=== PATIENT | male | born 1945 | race Caucasian/White ===

== ENCOUNTER 2017-12-04 12:07 | Inpatient (IN) ==
[2017-12-04 13:21] LABS: Bilirubin,Urine Negative (Negative); Blood,Urine Negative (Negative); Clarity,Urine Clear (Clear); Color,Urine Yellow (Yellow); Glucose,Urine (UA) Normal (Normal); Ketones,Urine Negative (Negative); Leukocyte Esterase,Urine Negative (Negative); Nitrite,Urine Negative (Negative); Protein,Urine 30 mg/dL (Neg-Trace); Specific Gravity,Urine 1.026 (1.010-1.025); Urobilinogen,Urine Normal (Normal)
[2017-12-04 13:24] LABS: Bacteria,Urine None Seen per hpf (None-Few); Hyaline Casts,Urine None Seen per lpf (None-Few); Squamous Epithelial Cell,Urine Many per lpf (None-Few); WBC,Urine 0-3 per hpf (0-3)
--- NOTE | 2017-12-04 13:25 | Emergency Department Note ---
Disposition Clinical Impression: Weakness, Hypoxia, Shortness of breath Disposition: Admitted As Inpatient Condition: Good Time of Disposition: 15:14 General Adult HPI - General Chief complaint: ED Weakness Stated complaint: Weakness,body aches Time Seen by Provider: 12/04/17 12:14 Source: patient Limitations: no limitations Nursing Notes Reviewed: Yes Vital Signs Reviewed: Yes - History of Present Illness HPI Narrative: 2 day history of not feeling well. Woke up yesterday and was " dizzy and wobbly." States that it resolved in the middle of the day but returned last night in the middle of the night, but " not as bad." It got better but this morning it was present again. Denies a history of stroke. Is not a smoker but does have COPD. He stopped smoking in 1997. Does not use oxygen at home. Denies CP, N/V/D. patient was conversationally dyspneic on initial presentation. He was placed on 2 L of oxygen and given a breathing treatment. His lung sounds were clear after this. Pt reports a funny feeling in his head, and SOB. Denies any fevers. Pain Scale: 0 - Related Data Home Medications Medication Instructions Recorded Confirmed Aspirin [Lo-Dose Aspirin EC] 81 mg PO DAILY 10/02/17 10/02/17 Atorvastatin [Lipitor] 20 mg PO HS 10/02/17 10/02/17 Carvedilol 12.5 mg PO BID 10/02/17 10/02/17 Furosemide [Lasix] 40 mg PO DAILY 10/02/17 10/02/17 SitaGLIPtin [Januvia] 100 mg PO DAILY 10/02/17 10/02/17 Spironolactone [Aldactone] 12.5 mg PO DAILY 10/02/17 10/02/17 amLODIPine [Norvasc] 5 mg PO DAILY 10/02/17 10/02/17 glipiZIDE [Glipizide] 10 mg PO BID 10/02/17 10/02/17 Allergies Allergy/AdvReac Type Severity Reaction Status Date / Time No Known Allergies Allergy Unverified 10/02/17 07:22 All systems ED: reviewed and negative except as stated. Review of Systems: As Per HPI Constitutional: Denies: fever, chills ENT ED: Denies: congestion Cardiovascular: Denies: chest pain, palpitations, syncope Respiratory: Reports: dyspnea (Over the past several months.). Denies: cough Gastrointestinal: Denies: abdominal pain, nausea, vomiting, diarrhea Genitourinary: Denies: urgency, dysuria, frequency, hematuria Musculoskeletal: Denies: back pain, neck pain Integumentary: Denies: rash, abrasion Neurological: Reports: abnormal gait (Patient states that he is very wobbly.), other (Funny feeling in his head.). Denies: headache, numbness, paresthesias Past Medical History - Past Medical History Attestation: Yes The following information was validated with the patient. Source: patient Medical history: Reports: CHF, COPD Surgical history: Reports: cholecystectomy, coronary bypass (CABG) Psychiatric history: Reports: no psych history - Social History Smoking Status: Former smoker Smokeless Tobacco Status: No Alcohol use: Reports: none Drug use: Reports: none Physical Exam - General Limitations: no limitations General appearance: alert, in no apparent distress - Head Head exam: atraumatic, normocephalic, normal inspection - Eye Eye exam: Present: normal appearance, PERRL, EOMI. Absent: scleral icterus - ENT ENT exam: normal exam, normal oropharynx, mucous membranes moist - Neck Neck exam: Present: normal inspection, full ROM, trachea midline - Chest Chest inspection: Present: normal inspection, symmetric chest wall rise - Respiratory Respiratory exam: Present: normal lung sounds bilaterally. Absent: respiratory distress, accessory muscle use - Cardiovascular Cardiovascular exam: Present: regular rate, normal rhythm, normal heart sounds - Abdominal Exam Abdominal exam: Present: soft, Non-Tender. Absent: tenderness, distention, guarding, rebound, rigidity, organomegaly - Extremities Exam Extremities exam: Present: normal inspection, full ROM, normal capillary refill , other (Good motor, strong strength and sensation to all 4 extremities. No deficits.). Absent: tenderness, pedal edema, calf tenderness - Back Exam Back exam: Present: normal inspection, full ROM. Absent: tenderness - Neurological Exam Neurological exam: Present: alert, oriented X3, CN II-XII intact, other (Pt has good heel to chin bilaterally). Absent: normal gait (Pt too weka to ambulate.) , motor sensory deficit ( E playing) - Psychiatric Psychiatric exam: Present: normal affect, normal mood - Skin Skin exam: Present: warm (When the plane he tolerated), dry, intact, normal color Course Course Narrative: Patient did have a heart catheterization on 726. Showed severe three-vessel disease. Nothing was stented at that time. He did see Dr. Tafoya. He did have echocardiogram around the same time that showed some wall motion abnormalities. Patient responded well to DuoNeb and Solu-Medrol. Does have signs of COPD on his chest x-ray. Does not appear to be fluid overloaded. He is unable to walk while here in the emergency department. He states he is too wobbly to wean. However while in bed he has an NIH of 0. He has full movement against gravity of all 4 extremities. Mentating appropriately. However in the past 2 days as wobbly feeling keeps resolving is concerning to me for possible TIA versus stroke. Patient does complain of shortness of breath. He states this is been chronic for several months however. He denies any chest pain. Denies any recent injuries. States that he is generally very coordinated and frequently walks around and does a lot of activity. CT negative. Chest Xray concerning for COPD. We will admit Pt to the hospital for further neurologic evaluation and COPD. Vital Signs Temperature 97.6 F 12/04/17 12:10 Pulse Rate 41 12/04/17 12:10 Respiratory Rate 18 12/04/17 12:10 Blood Pressure 189/64 12/04/17 12:10 O2 Sat by Pulse Oximetry 99 12/04/17 12:10 Temperature 97.5 F L 12/04/17 15:50 Pulse Rate 75 12/04/17 15:50 Respiratory Rate 15 12/04/17 15:50 Blood Pressure 178/79 12/04/17 15:50 O2 Sat by Pulse Oximetry 96 12/04/17 15:50 Oxygen Delivery Oxygen Delivery Room Air Medical Decision Making - Medical Records Medical records reviewed: Yes I reviewed the patient's medical records. - Lab Data Lab results reviewed: Yes I reviewed the patient's lab results. Result diagrams: 12/04/17 12:53 12/04/17 12:53 Lab Results 12/04/17 12/04/17 12/04/17 Range/Units 12:53 12:53 12:53 WBC 9.2 (4.3-11.1) K/mcL RBC 5.36 (4.19-5.50) M/mcL Hgb 16.4 (12.9-16.9) g/dL Hct 47.1 (37.5-50.1) % MCV 87.9 (83.0-100.0) fL MCH 30.6 (28.0-33.3) pg MCHC 34.8 (31.6-35.5) g/dL RDW 13.2 (11.5-14.5) % Plt Count 192 (140-400) K/mcL MPV 10.9 (9.4-12.4) fL Immature Gran % 0.4 (0-4) % Seg Neutrophils % 66.0 % Lymphocytes % 19.9 % Monocytes % 8.6 % Eosinophils % 4.4 % Basophils % 0.7 % Neutrophils # 6.1 (1.6-8.9) K/mcL Lymphocytes # 1.8 (0.6-4.6) K/mcL Monocytes # 0.8 (0.0-1.3) K/mcL Eosinophils # 0.4 (0.0-0.6) K/mcL Basophils # 0.1 (0.0-0.2) K/mcL PT (9.4-12.1) Seconds INR APTT (26.0-36.0) Seconds Sodium 135 L (136-145) mEq/L Potassium 4.4 (3.5-5.1) mEq/L Chloride 102 (98-107) mEq/L Carbon Dioxide 24 (23-29) mEq/L BUN 16 (8-23) mg/dL Creatinine 1.17 (0.70-1.30) mg/dL Est GFR ( Amer) > 60 (> 60) Est GFR (Non-Af Amer) > 60 (> 60) BUN/Creatinine Ratio 14 (6-26) Glucose 247 H (70-105) mg/dL Calculated Osmolality 289 (280-300) Lactic Acid 0.9 (0.5-2.2) mmol/L Calcium 9.4 (8.6-10.3) mg/dL Magnesium 2.1 (1.6-2.6) mg/dL Total Bilirubin 1.0 (0.3-1.0) mg/dL AST 17 (13-39) Units/L ALT 14 (7-52) Units/L Alkaline Phosphatase 76 (34-104) Units/L Troponin I 0.03 (< 0.04) ng/mL B-Natriuretic Peptide (Less than 100) pg/mL Serum Total Protein 6.6 (6.4-8.9) g/dL Albumin 4.5 (3.5-5.7) g/dL Globulin 2.1 L (2.4-3.5) g/dL Albumin/Globulin Ratio 2.1 (1.1-2.2) TSH 3.467 (0.340-5.600) mcIU/mL Ur Specimen Adequacy Urine Color (Yellow) Urine Clarity (Clear) Urine pH (5.0-8.0) pH Units Ur Specific Bryan (1.010-1.025) Urine Protein (Neg-Trace) mg/dL Urine Glucose (UA) (Normal) mg/dL Urine Ketones (Negative) mg/dL Urine Blood (Negative) Urine Nitrite (Negative) Urine Bilirubin (Negative) Urine Urobilinogen (Normal) mg/dL Ur Leukocyte Esterase (Negative) Urine Microscopic RBC (0-3) per hpf Urine Microscopic WBC (0-3) per hpf Ur Squamous Epith Cells (None-Few) per lpf Urine Bacteria (None-Few) per hpf Hyaline Casts (None-Few) per lpf Ur Culture Indicated? (NO) Lyme Total Antibody (Negative) 12/04/17 12/04/17 12/04/17 Range/Units 12:53 12:53 12:53 WBC (4.3-11.1) K/mcL RBC (4.19-5.50) M/mcL Hgb (12.9-16.9) g/dL Hct (37.5-50.1) % MCV (83.0-100.0) fL MCH (28.0-33.3) pg MCHC (31.6-35.5) g/dL RDW (11.5-14.5) % Plt Count (140-400) K/mcL MPV (9.4-12.4) fL Immature Gran % (0-4) % Seg Neutrophils % % Lymphocytes % % Monocytes % % Eosinophils % % Basophils % % Neutrophils # (1.6-8.9) K/mcL Lymphocytes # (0.6-4.6) K/mcL Monocytes # (0.0-1.3) K/mcL Eosinophils # (0.0-0.6) K/mcL Basophils # (0.0-0.2) K/mcL PT 11.5 (9.4-12.1) Seconds INR 1.0 APTT 36.3 H (26.0-36.0) Seconds Sodium (136-145) mEq/L Potassium (3.5-5.1) mEq/L Chloride (98-107) mEq/L Carbon Dioxide (23-29) mEq/L BUN (8-23) mg/dL Creatinine (0.70-1.30) mg/dL Est GFR ( Amer) (> 60) Est GFR (Non-Af Amer) (> 60) BUN/Creatinine Ratio (6-26) Glucose (70-105) mg/dL Calculated Osmolality (280-300) Lactic Acid (0.5-2.2) mmol/L Calcium (8.6-10.3) mg/dL Magnesium (1.6-2.6) mg/dL Total Bilirubin (0.3-1.0) mg/dL AST (13-39) Units/L ALT (7-52) Units/L Alkaline Phosphatase (34-104) Units/L Troponin I (< 0.04) ng/mL B-Natriuretic Peptide 103 H (Less than 100) pg/mL Serum Total Protein (6.4-8.9) g/dL Albumin (3.5-5.7) g/dL Globulin (2.4-3.5) g/dL Albumin/Globulin Ratio (1.1-2.2) TSH (0.340-5.600) mcIU/mL Ur Specimen Adequacy Urine Color (Yellow) Urine Clarity (Clear) Urine pH (5.0-8.0) pH Units Ur Specific Bryan (1.010-1.025) Urine Protein (Neg-Trace) mg/dL Urine Glucose (UA) (Normal) mg/dL Urine Ketones (Negative) mg/dL Urine Blood (Negative) Urine Nitrite (Negative) Urine Bilirubin (Negative) Urine Urobilinogen (Normal) mg/dL Ur Leukocyte Esterase (Negative) Urine Microscopic RBC (0-3) per hpf Urine Microscopic WBC (0-3) per hpf Ur Squamous Epith Cells (None-Few) per lpf Urine Bacteria (None-Few) per hpf Hyaline Casts (None-Few) per lpf Ur Culture Indicated? (NO) Lyme Total Antibody Negative (Negative) 09/27/18 Range/Units 12:55 WBC (4.3-11.1) K/mcL RBC (4.19-5.50) M/mcL Hgb (12.9-16.9) g/dL Hct (37.5-50.1) % MCV (83.0-100.0) fL MCH (28.0-33.3) pg MCHC (31.6-35.5) g/dL RDW (11.5-14.5) % Plt Count (140-400) K/mcL MPV (9.4-12.4) fL Immature Gran % (0-4) % Seg Neutrophils % % Lymphocytes % % Monocytes % % Eosinophils % % Basophils % % Neutrophils # (1.6-8.9) K/mcL Lymphocytes # (0.6-4.6) K/mcL Monocytes # (0.0-1.3) K/mcL Eosinophils # (0.0-0.6) K/mcL Basophils # (0.0-0.2) K/mcL PT (9.4-12.1) Seconds INR APTT (26.0-36.0) Seconds Sodium (136-145) mEq/L Potassium (3.5-5.1) mEq/L Chloride (98-107) mEq/L Carbon Dioxide (23-29) mEq/L BUN (8-23) mg/dL Creatinine (0.70-1.30) mg/dL Est GFR ( Amer) (> 60) Est GFR (Non-Af Amer) (> 60) BUN/Creatinine Ratio (6-26) Glucose (70-105) mg/dL Calculated Osmolality (280-300) Lactic Acid (0.5-2.2) mmol/L Calcium (8.6-10.3) mg/dL Magnesium (1.6-2.6) mg/dL Total Bilirubin (0.3-1.0) mg/dL AST (13-39) Units/L ALT (7-52) Units/L Alkaline Phosphatase (34-104) Units/L Troponin I (< 0.04) ng/mL B-Natriuretic Peptide (Less than 100) pg/mL Serum Total Protein (6.4-8.9) g/dL Albumin (3.5-5.7) g/dL Globulin (2.4-3.5) g/dL Albumin/Globulin Ratio (1.1-2.2) TSH (0.340-5.600) mcIU/mL Ur Specimen Adequacy See below A Urine Color Yellow (Yellow) Urine Clarity Clear (Clear) Urine pH 5.0 (5.0-8.0) pH Units Ur Specific Bryan 1.026 H (1.010-1.025) Urine Protein 30 H (Neg-Trace) mg/dL Urine Glucose (UA) Normal (Normal) mg/dL Urine Ketones Negative (Negative) mg/dL Urine Blood Negative (Negative) Urine Nitrite Negative (Negative) Urine Bilirubin Negative (Negative) Urine Urobilinogen Normal (Normal) mg/dL Ur Leukocyte Esterase Negative (Negative) Urine Microscopic RBC 5-15 H (0-3) per hpf Urine Microscopic WBC 0-3 (0-3) per hpf Ur Squamous Epith Cells Many H (None-Few) per lpf Urine Bacteria None Seen (None-Few) per hpf Hyaline Casts None Seen (None-Few) per lpf Ur Culture Indicated? NO (NO) Lyme Total Antibody (Negative) - Radiology Data Radiology results reviewed: Yes I reviewed the patient's radiology results. Chest X-Ray 12/04/17 12:34 IMPRESSION: Atherosclerotic calcifications in the aorta, with postsurgical changes seen related to prior CABG. No acute cardiopulmonary process is identified. Mildly prominent interstitial change felt related to underlying COPD. D/ / Fredi Bose MD / Fredi Bose MD Interpreting Provider: Fredi Bose MD Head CT 12/04/17 12:35 IMPRESSION: 1. No acute intracranial abnormality. 2. Chronic small vessel ischemic disease. D/ / Chi Cheng MD / Chi Cheng MD Interpreting Provider: Chi Cheng MD - EKG Data EKG #1 EKG attestation: Yes I reviewed and interpreted this EKG. EKG results narrative: Patient bigeminy at this time. No signs of acute ischemia. Does have an underlying sinus rhythm. Attestation Statement - Attestation Attestation: I, Jeremiah Carter DO, examined this patient [id number] and my medical decision-making was reviewed with Dr. Morena Traylor, Resident Physician. I agree with the documented findings, disposition and treatment plan as described except to the extent set forth below. Please see my progress notes for details. NIH Stroke Scale - Level of Consciousness LOC: Alert - LOC Questions LOC Questions: Answers both correctly - LOC Commands LOC Commands: Performs both correctly - Best Gaze Best Gaze: Normal - Visual Visual: No visual loss - Facial Palsy Facial Palsy: Normal - Motor Arms Motor Arm-Left: No drift for 10 seconds Motor Arm-Right: No drift for 10 seconds - Motor Legs Motor Leg-Left: No drift for 5 seconds Motor Leg-Right: No drift for 5 seconds - Limb Ataxia Limb Ataxia: Normal, No Ataxia - Sensory Sensory: Normal - Best Language Best Language: No aphasia - Dysarthria Dysarthria: Normal - Extinction and Inattention Extinction and Inattention: Normal - NIHSS Total Score NIHSS Total Score: 0
[2017-12-04 13:27] LABS: Basophils # 0.1 K/mcL (0.0-0.2); Basophils % 0.7 %; Eosinophils # 0.4 K/mcL (0.0-0.6); Eosinophils % 4.4 %; Hematocrit 47.1 % (37.5-50.1); Hemoglobin 16.4 g/dL (12.9-16.9); Immature Granulocytes % 0.4 % (0-4); Lymphocytes # 1.8 K/mcL (0.6-4.6); Lymphocytes % 19.9 %; Mean Corpuscular HGB Conc 34.8 g/dL (31.6-35.5); Mean Corpuscular Hemoglobin 30.6 pg (28.0-33.3); Mean Corpuscular Volume 87.9 fL (83.0-100.0); Mean Platelet Volume 10.9 fL (9.4-12.4); Monocytes # 0.8 K/mcL (0.0-1.3); Monocytes % 8.6 %; Neutrophils # 6.1 K/mcL (1.6-8.9); Platelet Count 192 K/mcL (140-400); Red Blood Count 5.36 M/mcL (4.19-5.50); Red Cell Distribution Width 13.2 % (11.5-14.5)
[2017-12-04] MEDS: 0.9 % Sodium Chloride 1,000 ML IVC SCH (13:33)
[2017-12-04] MEDS ORDERED: methylPREDNISolone 125 MG/2 ML VIAL IVP ONE (13:35)
[2017-12-04] MEDS ORDERED: Ipratropium/Albuterol Neb 3 ML IH ONE (13:35)
--- NOTE | 2017-12-04 13:35 | Emergency Department Note ---
Disposition Clinical Impression: Weakness, Hypoxia, Shortness of breath Disposition: Admitted As Inpatient Condition: Fair Referrals: Rosa Tapia MD [Primary Care Provider] - Forms: ED Satisfaction Letter Time of Disposition: 14:48 General Adult HPI - General Chief complaint: ED Weakness Stated complaint: Weakness,body aches Time Seen by Provider: 12/04/17 12:14 Source: patient Limitations: no limitations - History of Present Illness Pain Scale: 0 - Related Data Home Medications Medication Instructions Recorded Confirmed Aspirin [Lo-Dose Aspirin EC] 81 mg PO DAILY 10/02/17 10/02/17 Atorvastatin [Lipitor] 20 mg PO HS 10/02/17 10/02/17 Carvedilol 12.5 mg PO BID 10/02/17 10/02/17 Furosemide [Lasix] 40 mg PO DAILY 10/02/17 10/02/17 SitaGLIPtin [Januvia] 100 mg PO DAILY 10/02/17 10/02/17 Spironolactone [Aldactone] 12.5 mg PO DAILY 10/02/17 10/02/17 amLODIPine [Norvasc] 5 mg PO DAILY 10/02/17 10/02/17 glipiZIDE [Glipizide] 10 mg PO BID 10/02/17 10/02/17 Allergies Allergy/AdvReac Type Severity Reaction Status Date / Time No Known Allergies Allergy Unverified 10/02/17 07:22 Past Medical History - Past Medical History Medical history: Reports: COPD Surgical history: Reports: cholecystectomy, coronary bypass (CABG) Psychiatric history: Reports: no psych history - Social History Smoking Status: Former smoker Smokeless Tobacco Status: No Alcohol use: Reports: none Drug use: Reports: none Physical Exam - General Limitations: no limitations General appearance: alert Course Vital Signs Temperature 97.6 F 12/04/17 12:10 Pulse Rate 41 12/04/17 12:10 Respiratory Rate 18 12/04/17 12:10 Blood Pressure 189/64 12/04/17 12:10 O2 Sat by Pulse Oximetry 99 12/04/17 12:10 Temperature 97.6 F 12/04/17 12:10 Pulse Rate 71 12/04/17 14:49 Respiratory Rate 20 12/04/17 14:49 Blood Pressure 158/95 12/04/17 14:49 O2 Sat by Pulse Oximetry 100 12/04/17 14:49 Oxygen Delivery Oxygen Delivery Room Air Medical Decision Making - Lab Data Result diagrams: 12/04/17 12:53 12/04/17 12:53 Lab Results 12/04/17 12/04/17 12/04/17 Range/Units 12:53 12:53 12:53 WBC 9.2 (4.3-11.1) K/mcL RBC 5.36 (4.19-5.50) M/mcL Hgb 16.4 (12.9-16.9) g/dL Hct 47.1 (37.5-50.1) % MCV 87.9 (83.0-100.0) fL MCH 30.6 (28.0-33.3) pg MCHC 34.8 (31.6-35.5) g/dL RDW 13.2 (11.5-14.5) % Plt Count 192 (140-400) K/mcL MPV 10.9 (9.4-12.4) fL Immature Gran % 0.4 (0-4) % Seg Neutrophils % 66.0 % Lymphocytes % 19.9 % Monocytes % 8.6 % Eosinophils % 4.4 % Basophils % 0.7 % Neutrophils # 6.1 (1.6-8.9) K/mcL Lymphocytes # 1.8 (0.6-4.6) K/mcL Monocytes # 0.8 (0.0-1.3) K/mcL Eosinophils # 0.4 (0.0-0.6) K/mcL Basophils # 0.1 (0.0-0.2) K/mcL PT (9.4-12.1) Seconds INR APTT (26.0-36.0) Seconds Sodium 135 L (136-145) mEq/L Potassium 4.4 (3.5-5.1) mEq/L Chloride 102 (98-107) mEq/L Carbon Dioxide 24 (23-29) mEq/L BUN 16 (8-23) mg/dL Creatinine 1.17 (0.70-1.30) mg/dL Est GFR ( Amer) > 60 (> 60) Est GFR (Non-Af Amer) > 60 (> 60) BUN/Creatinine Ratio 14 (6-26) Glucose 247 H (70-105) mg/dL Calculated Osmolality 289 (280-300) Lactic Acid 0.9 (0.5-2.2) mmol/L Calcium 9.4 (8.6-10.3) mg/dL Magnesium 2.1 (1.6-2.6) mg/dL Total Bilirubin 1.0 (0.3-1.0) mg/dL AST 17 (13-39) Units/L ALT 14 (7-52) Units/L Alkaline Phosphatase 76 (34-104) Units/L Troponin I 0.03 (< 0.04) ng/mL B-Natriuretic Peptide (Less than 100) pg/mL Serum Total Protein 6.6 (6.4-8.9) g/dL Albumin 4.5 (3.5-5.7) g/dL Globulin 2.1 L (2.4-3.5) g/dL Albumin/Globulin Ratio 2.1 (1.1-2.2) TSH 3.467 (0.340-5.600) mcIU/mL Ur Specimen Adequacy Urine Color (Yellow) Urine Clarity (Clear) Urine pH (5.0-8.0) pH Units Ur Specific [place] (1.010-1.025) Urine Protein (Neg-Trace) mg/dL Urine Glucose (UA) (Normal) mg/dL Urine Ketones (Negative) mg/dL Urine Blood (Negative) Urine Nitrite (Negative) Urine Bilirubin (Negative) Urine Urobilinogen (Normal) mg/dL Ur Leukocyte Esterase (Negative) Urine Microscopic RBC (0-3) per hpf Urine Microscopic WBC (0-3) per hpf Ur Squamous Epith Cells (None-Few) per lpf Urine Bacteria (None-Few) per hpf Hyaline Casts (None-Few) per lpf Ur Culture Indicated? (NO) Lyme Total Antibody (Negative) 12/04/17 12/04/17 12/04/17 Range/Units 12:53 12:53 12:53 WBC (4.3-11.1) K/mcL RBC (4.19-5.50) M/mcL Hgb (12.9-16.9) g/dL Hct (37.5-50.1) % MCV (83.0-100.0) fL MCH (28.0-33.3) pg MCHC (31.6-35.5) g/dL RDW (11.5-14.5) % Plt Count (140-400) K/mcL MPV (9.4-12.4) fL Immature Gran % (0-4) % Seg Neutrophils % % Lymphocytes % % Monocytes % % Eosinophils % % Basophils % % Neutrophils # (1.6-8.9) K/mcL Lymphocytes # (0.6-4.6) K/mcL Monocytes # (0.0-1.3) K/mcL Eosinophils # (0.0-0.6) K/mcL Basophils # (0.0-0.2) K/mcL PT 11.5 (9.4-12.1) Seconds INR 1.0 APTT 36.3 H (26.0-36.0) Seconds Sodium (136-145) mEq/L Potassium (3.5-5.1) mEq/L Chloride (98-107) mEq/L Carbon Dioxide (23-29) mEq/L BUN (8-23) mg/dL Creatinine (0.70-1.30) mg/dL Est GFR ( Amer) (> 60) Est GFR (Non-Af Amer) (> 60) BUN/Creatinine Ratio (6-26) Glucose (70-105) mg/dL Calculated Osmolality (280-300) Lactic Acid (0.5-2.2) mmol/L Calcium (8.6-10.3) mg/dL Magnesium (1.6-2.6) mg/dL Total Bilirubin (0.3-1.0) mg/dL AST (13-39) Units/L ALT (7-52) Units/L Alkaline Phosphatase (34-104) Units/L Troponin I (< 0.04) ng/mL B-Natriuretic Peptide 103 H (Less than 100) pg/mL Serum Total Protein (6.4-8.9) g/dL Albumin (3.5-5.7) g/dL Globulin (2.4-3.5) g/dL Albumin/Globulin Ratio (1.1-2.2) TSH (0.340-5.600) mcIU/mL Ur Specimen Adequacy Urine Color (Yellow) Urine Clarity (Clear) Urine pH (5.0-8.0) pH Units Ur Specific [place] (1.010-1.025) Urine Protein (Neg-Trace) mg/dL Urine Glucose (UA) (Normal) mg/dL Urine Ketones (Negative) mg/dL Urine Blood (Negative) Urine Nitrite (Negative) Urine Bilirubin (Negative) Urine Urobilinogen (Normal) mg/dL Ur Leukocyte Esterase (Negative) Urine Microscopic RBC (0-3) per hpf Urine Microscopic WBC (0-3) per hpf Ur Squamous Epith Cells (None-Few) per lpf Urine Bacteria (None-Few) per hpf Hyaline Casts (None-Few) per lpf Ur Culture Indicated? (NO) Lyme Total Antibody Negative (Negative) 12/04/17 Range/Units 12:55 WBC (4.3-11.1) K/mcL RBC (4.19-5.50) M/mcL Hgb (12.9-16.9) g/dL Hct (37.5-50.1) % MCV (83.0-100.0) fL MCH (28.0-33.3) pg MCHC (31.6-35.5) g/dL RDW (11.5-14.5) % Plt Count (140-400) K/mcL MPV (9.4-12.4) fL Immature Gran % (0-4) % Seg Neutrophils % % Lymphocytes % % Monocytes % % Eosinophils % % Basophils % % Neutrophils # (1.6-8.9) K/mcL Lymphocytes # (0.6-4.6) K/mcL Monocytes # (0.0-1.3) K/mcL Eosinophils # (0.0-0.6) K/mcL Basophils # (0.0-0.2) K/mcL PT (9.4-12.1) Seconds INR APTT (26.0-36.0) Seconds Sodium (136-145) mEq/L Potassium (3.5-5.1) mEq/L Chloride (98-107) mEq/L Carbon Dioxide (23-29) mEq/L BUN (8-23) mg/dL Creatinine (0.70-1.30) mg/dL Est GFR ( Amer) (> 60) Est GFR (Non-Af Amer) (> 60) BUN/Creatinine Ratio (6-26) Glucose (70-105) mg/dL Calculated Osmolality (280-300) Lactic Acid (0.5-2.2) mmol/L Calcium (8.6-10.3) mg/dL Magnesium (1.6-2.6) mg/dL Total Bilirubin (0.3-1.0) mg/dL AST (13-39) Units/L ALT (7-52) Units/L Alkaline Phosphatase (34-104) Units/L Troponin I (< 0.04) ng/mL B-Natriuretic Peptide (Less than 100) pg/mL Serum Total Protein (6.4-8.9) g/dL Albumin (3.5-5.7) g/dL Globulin (2.4-3.5) g/dL Albumin/Globulin Ratio (1.1-2.2) TSH (0.340-5.600) mcIU/mL Ur Specimen Adequacy See below A Urine Color Yellow (Yellow) Urine Clarity Clear (Clear) Urine pH 5.0 (5.0-8.0) pH Units Ur Specific [place] 1.026 H (1.010-1.025) Urine Protein 30 H (Neg-Trace) mg/dL Urine Glucose (UA) Normal (Normal) mg/dL Urine Ketones Negative (Negative) mg/dL Urine Blood Negative (Negative) Urine Nitrite Negative (Negative) Urine Bilirubin Negative (Negative) Urine Urobilinogen Normal (Normal) mg/dL Ur Leukocyte Esterase Negative (Negative) Urine Microscopic RBC 5-15 H (0-3) per hpf Urine Microscopic WBC 0-3 (0-3) per hpf Ur Squamous Epith Cells Many H (None-Few) per lpf Urine Bacteria None Seen (None-Few) per hpf Hyaline Casts None Seen (None-Few) per lpf Ur Culture Indicated? NO (NO) Lyme Total Antibody (Negative) Attestation Statement - Attestation Attestation: I, Jeremiah Carter DO, examined this patient [id number] and my medical decision-making was reviewed with (Dr. Morena Traylor), Resident Physician. I agree with the documented findings, disposition and treatment plan as described except to the extent set forth below. Please see my progress notes for details. 72-year-old male presents emergency room with 24-48 hours with the generalized malaise and weakness. Patient denies any recent illnesses. Denies any falls trauma or injury. Denies any new medications. Patient is currently denying chest pain shortness of breath headache vision changes nausea vomiting diarrhea fevers or chills. is with him at the bedside and has describe some increased work of breathing with exertion or doing ask of daily living at this point. Patient does have a significant cardiac history with multivessel bypasses completed back in 1998. He did have a coronary artery evaluation in September of this year that did show significant disease but no intervention was provided at that point. Patient is currently on aspirin and Plavix based on his description of his medications. His main concern for coming in today is that his had waxing and waning symptoms with his generalized malaise. The symptoms incorporate the entire upper and lower body. There is been no specific progression. He did have the symptoms initially at home and then they resolve spontaneously on their own and came back again last night just before going to bed. On physical exam his resting comfortably in bed. His initial vital signs showed a heart rate of 41 but it appears to be picking up the bigeminy and appropriately and the initial EKG. Patient's ventricular rate appears to be in the 70s to 80s with compensation of this time. His blood pressure is been normal. During my evaluation the patient is conversational but his pulse ox did drop to 82-86% with conversation. He does not typically use oxygen. 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 No diagnosis of COPD or emphysema. Based on the concerns on presentation as well as generalized weakness CT imaging chest x-ray CBC chemistry troponin and BNP along with breathing treatments and steroids will be started at this point. Patient denies any tick bites or recent illnesses. He denies any other symptoms. No acute signs of encephalopathic-like presentation no neurologic findings on exam. Cranial nerves III through XII are grossly intact his oropharynx is patent trachea is midline. Pupils are equal round reactive extracted muscles are intact lungs are clear to auscultation heart is regular with the ventricular beats that are noted. Abdomen is soft no pulsatile masses or lesions. He has good pulses into the distal aspect of the lower extremities are DP and PT distributions being palpated and similar bilaterally. He has no signs of pitting edema or swelling. Disposition will most likely be admission wants a full workup and treatment course have been completed. Echocardiogram, stress test, coronary artery catheterization well reviewed from September and shows chronic vessel disease with no acute intervention. See detailed documentation the physical exam, medical intervention, medical decision-making disposition in the resident physician's note. No critical care applied to the patient's treatment course at this time. [address] imaging of the head. Chest x-ray does not show any acute findings outside of potential COPD. Labs are otherwise unremarkable. Patient was helped up from the bed to ambulate and had significant weakness and felt like he could not walk. Is also been intermittently hypoxic. Patient was discussed with the hospitals for admission for unknown etiology to the generalized malaise with concern for hypoxia versus cardiac versus potential infectious etiology. No visible signs of infection noted at this point the patient will be observed closely. No antibiotics have been started. Admission process has been established with discussion with the hospitalist Dr. Barnett. No other recommendations or concerns noted at this point. Patient will be admitted for continuation of care. Patient did have some moderate resolution of the breathing issues after breathing treatments and steroids. Clinical suspicion is for possible TIA evaluation versus COPD exacerbation and hypoxia.
[2017-12-04 13:36] LABS: Activated Partial Thrombo Time 36.3 Seconds (26.0-36.0); Prothrombin Time 11.5 Seconds (9.4-12.1)
[2017-12-04 13:44] LABS: Troponin I 0.03 ng/mL (< 0.04)
[2017-12-04 13:53] LABS: Alanine Aminotransferase 14 Units/L (7-52); Albumin 4.5 g/dL (3.5-5.7); Albumin/Globulin Ratio 2.1 (1.1-2.2); Alkaline Phosphatase 76 Units/L (34-104); Aspartate Amino Transferase 17 Units/L (13-39); BUN/Creatinine Ratio 14 (6-26); Blood Urea Nitrogen 16 mg/dL (8-23); Calcium 9.4 mg/dL (8.6-10.3); Carbon Dioxide 24 mEq/L (23-29); Chloride 102 mEq/L (98-107); Globulin 2.1 g/dL (2.4-3.5); Glucose 247 mg/dL (70-105); Magnesium 2.1 mg/dL (1.6-2.6); Osmolality,Calculated 289 (280-300); Potassium 4.4 mEq/L (3.5-5.1); Sodium 135 mEq/L (136-145); Total Protein 6.6 g/dL (6.4-8.9); eGFR For Non-African Americans > 60 (> 60)
[2017-12-04 13:58] LABS: Thyroid Stimulating Hormone 3.467 mcIU/mL (0.340-5.600)
[2017-12-04] MEDS ORDERED: Gadolinium Contrast Agent (WT Based) IV PRN (16:16)
--- NOTE | 2017-12-04 16:36 | Internal Med History&Physical ---
Date of Encounter: 12/04/17 Time of Encounter: 16:00 Internal Medicine - H&P: HPI Chief complaint: dizziness, weakness, "feeling not right " Admitted From: Home History of present illness: Mr. Narvaez is a 72 year old male who entered from his home to the emergency room with feelings of dizziness, weakness and his lower extremities, shortness of breath and generalized feeling tired and poorly. His states that he appears to the past couple days just not be quite right with increased mild confusion, and"I just can't put my finger on it. Patient is struggling with the defining and describing his signs and symptoms. He denies chest pain shortness breath does state that he is dizzy and feels off balance. Feels that he is spinning in the room nothing appears to make his signs and symptoms worse or better. He denies any head injury falls, or history of trauma. He does have the history for COPD and coronary artery disease with a 4 way CABG in 1997. He stated that he had a heart catheter October 2017 and it was normal. He also has type 2 diabetes ports that he takes Januvia and glipizide currently he states that his home blood sugars have been normal for 110-150 throughout the day, however over the past few days they have been running elevated 172-39 . He denies any changes in his diet or activity level, denies use of alcohol or illicit drugs. Reports that he quit smoking in 1997. Home medications include amlodipine 5 mg once daily Coreg 12.5 mg 1 tab twice daily Lasix 40 mg 1 tab once daily Glipizide 10 mg twice daily Losartan 25 mg daily ASA 81 mg daily Lipitor 20mg qpm, Januvia 100mg daily, Past Med Surg Social Fam HX - Past Medical History Source: patient Medical history: COPD, diabetes, hyperlipidemia, hypertension Additional medical history: black lung Psychiatric history: no psych history - Past Surgical History Surgical History: cholecystectomy, coronary bypass (CABG) - Social History Smoking Status: Former smoker Smokeless Tobacco Status: No Alcohol use: none Drug use: none Internal Medicine - H&P: Meds Aspirin [Lo-Dose Aspirin EC] 81 mg PO DAILY 10/02/17 [History] Atorvastatin [Lipitor] 20 mg PO HS 10/02/17 [History] Carvedilol 12.5 mg PO BID 10/02/17 [History] Furosemide [Lasix] 40 mg PO DAILY 10/02/17 [History] SitaGLIPtin [Januvia] 100 mg PO DAILY 10/02/17 [History] Spironolactone [Aldactone] 12.5 mg PO DAILY 10/02/17 [History] amLODIPine [Norvasc] 5 mg PO DAILY 10/02/17 [History] glipiZIDE [Glipizide] 10 mg PO BID 10/02/17 [History] 3 Allergy/AdvReac Type Severity Reaction Status Date / Time No Known Allergies Allergy Unverified 10/02/17 07:22 All Systems PM: A 10-system review of systems was performed and is negative for pertinent findings except as documented above in the HPI. - Constitutional Constitutional: weakness - EENT Eyes: no change in vision, no discharge, no pain, no photophobia Ears: no ear discharge, no ear pain, no tinnitus Nose, mouth and throat: no dysphagia, no nasal discharge, no neck pain, no sore throat - Cardiovascular Cardiovascular ROS IM: dyspnea on exertion - Respiratory Respiratory: no cough, no dyspnea, no wheezing, no excessive phlegm production - Gastrointestinal Gastrointestinal: no abdominal pain, no diarrhea, no hematemesis, no hematochezia, no melena, no nausea, no vomiting - Genitourinary Genitourinary ROS male: as per HPI - Musculoskeletal Musculoskeletal ROS IM: muscle weakness - Integumentary Integumentary IM: no rash, no unusual bruising - Neurological Neurological ROS: disequilibrium, dizziness, vertigo, weakness - Psychiatric Psychiatric: confusion - Endocrine Endocrine IM: as per HPI - Hematologic/Lymphatic Hematologic/Lymphatic: no easy bruising - Allergic/Immunologic Allergic/Immunologic: as per HPI - Constitutional Vitals: Temp Pulse Resp BP Pulse Ox 97.5 F L 75 15 178/79 96 12/04/17 15:50 12/04/17 15:50 12/04/17 15:50 12/04/17 15:50 12/04/17 15:50 General appearance: Present: A&O X 3, pleasant, no acute distress Exam: Patient is resting comfortably in the event of is at the bedside, mild hypertension is noted however he states that he has not had any of his blood pressure medications today. - Head Head exam: Present: atraumatic, normocephalic - Eye Eye exam: Present: PERRL, conjuntiva pink, sclera anicteric Pupils: Present: PERRL Additional comments: HX of bilateral lens implants for cataract - ENT ENT exam: Present: normal exam, normal oropharynx - Neck Neck exam general surgery: Present: full ROM, normal inspection - Respiratory Respiratory exam: Present: CTAB - Cardiovascular Cardiovascular exam: Present: RRR, +S1, +S2. Absent: diastolic murmur, gallop, rubs, systolic murmur - GI/Abdominal GI/Abdominal exam: Present: normal bowel sounds, soft, no peritoneal signs. Absent: distended, tenderness - Extremities Exam Extremities exam: Present: warm, radial pulses palpable and symmetrical. Absent : calf tenderness, cyanotic, pedal edema Additional comments: heel to toe gait, normal ambulation pace, no dizziness or loss of balance with turning to come back down lara, reports "feels off balance " Negative for leg weakness with push pull, full weight bearing - Back Exam Back exam: Present: full ROM, normal inspection - Neurological Exam Neurological exam: Present: CN II-XII intact, normal gait, oriented X3, reflexes normal, no focal deficits - Expanded Neurological Exam Patient oriented to: Present: person, place, time Speech: Present: fluid speech Cranial Nerves: EOM's intact PM: Normal, gag reflex PM: Normal, nystagmus PM: Normal, tongue deviation PM: Normal Cerebellar function: finger to nose: Normal, heel to rodrigez: Normal, Romberg: Normal - Psychiatric Psychiatric exam: Present: normal affect, normal mood - Skin Skin exam: Present: dry, intact Internal Med - H&P Results - Labs CBC & Chem 7: 12/04/17 12:53 12/04/17 12:53 - Diagnostic Studies CT scan - head Additional comments: EXAMINATION: CT OF THE HEAD WITHOUT CONTRAST 12/04/2017 1:40 pm TECHNIQUE: CT of the head was performed without the administration of intravenous contrast. Dose modulation, iterative reconstruction, and/or weight based adjustment of the mA/kV was utilized to reduce the radiation dose to as low as reasonably achievable. COMPARISON: None. HISTORY: ORDERING SYSTEM PROVIDED HISTORY: weakness FINDINGS: BRAIN/VENTRICLES: There is no acute intracranial hemorrhage, mass effect or midline shift. No abnormal extra-axial fluid collection. The rizvi-white differentiation is maintained without evidence of an acute infarct. There is no evidence of hydrocephalus. There are scattered areas of low attenuation within the basal ganglia subcortical white matter. There are punctate bilateral basal ganglia calcifications. ORBITS: The visualized portion of the orbits demonstrate no acute abnormality. SINUSES: The visualized paranasal sinuses and mastoid air cells demonstrate no acute abnormality. SOFT TISSUES/SKULL: No acute abnormality of the visualized skull or soft tissues. CT/CT head/brain wo con IMPRESSION: 1. No acute intracranial abnormality. 2. Chronic small vessel ischemic disease. Glucose is elevated at 247 CBC is normal Lyme titer is negative Chest x-ray shows atherosclerotic calcifications in the aorta with postsurgical changes related to prior CABG no acute cardiopulmonary processes are identified of mildly prominent interstitial change felt related to underlying COPD - Time Spent With Patient Total time spent is greater than 50% in coordination of care (as documented) at patient's floor/unit and/or counseling patient:
[2017-12-04] MEDS ORDERED: D5% in Water 1,000 ML IVC PRN (16:58)
[2017-12-04] MEDS ORDERED: Dextrose Gel 15 GM/37.5 ML TUBE PO PRN ×2 (16:58)
[2017-12-04] MEDS ORDERED: *HR* Dextrose 50 % in Water (Syg) 50 ML SYRINGE IVP PRN (16:58)
[2017-12-04 17:23] LABS: Estimated Average Glucose 206 mg/dl; Hemoglobin A1C 8.8 %
--- NOTE | 2017-12-04 19:44 | Event Note ---
Date of Encounter: 12/04/17 Time of Encounter: 19:15 [facility] nurse [place] [facility] w/results of the pts. MRI of the head/brain. Pt. admitted for TIA/CVA r/ o d/t confusion, dizziness, weakness of bilateral lower extremities, and fatigue. MRI results showed acute ischemic lacunar infarct in the posterior limb left internal capsule extending into the posterior left frontal periventricular white matter. No intracranial hemorrhage or mass effect. Mild chronic white matter microvascular ischemic changes with scattered cerebral and cerebellar remote lacunar infarcts. Neurology consult ordered but not confirmed , so call to Dr. Ortega placed w/recommendation to administer aspirin now, begin stroke w/u, and hold all HTN medications to allow for permissive HTN. Pt. to be NPO until dysphagia screen passed. NIHSS modified. Timed neurologic checks. Padding to bed rails. Pt. to be monitored closely overnight for any signs of neurologic changes or decline.
[2017-12-04] MEDS: Aspirin Enteric Coated 81 MG Tablet PO SCH (19:50)
[2017-12-04] MEDS: *HR* GlipiZIDE 5 MG TABLET PO SCH (21:12)
[2017-12-04] MEDS: Insulin LISPRO 300 UNITS/3 ML VIAL SQ SCH (21:14)
[2017-12-04] MEDS: amLODIPine 5 MG TABLET PO SCH (22:53)
--- NOTE | 2017-12-05 00:54 | Electrocardiograph Report ---
[employer] Test Date: 2017-12-04 Pat Name: Darek Narvaez Department: [id number] Room: [facility] Gender: M Control Officer: : 1945 Requested By: Jeremiah Carter Order Number: [id number] Reading MD: Lauren Rivas Measurements Intervals Herrick Rate: 81 P: 60 MD: 196 QRS: 77 QRSD: 90 T: 67 QT: 438 QTc: 449 Interpretive Statements Sinus rhythm Ventricular bigeminy Electronically Signed On 12-05-2017 0:52:31 EDT by Lauren Rivas
[2017-12-05 06:14] LABS: Basophils % 0.2 %; Hemoglobin 15.6 g/dL (12.9-16.9); Immature Granulocytes % 0.4 % (0-4); Lymphocytes # 0.8 K/mcL (0.6-4.6); Lymphocytes % 7.6 %; Mean Corpuscular HGB Conc 34.7 g/dL (31.6-35.5); Mean Corpuscular Hemoglobin 30.1 pg (28.0-33.3); Mean Corpuscular Volume 86.9 fL (83.0-100.0); Mean Platelet Volume 11.1 fL (9.4-12.4); Monocytes # 0.3 K/mcL (0.0-1.3); Monocytes % 2.4 %; Neutrophils # 9.8 K/mcL (1.6-8.9); Platelet Count 180 K/mcL (140-400); Red Blood Count 5.18 M/mcL (4.19-5.50); Red Cell Distribution Width 13.2 % (11.5-14.5); Segmented Neutrophils % 89.4 %
[2017-12-05 06:33] LABS: BUN/Creatinine Ratio 21 (6-26); Blood Urea Nitrogen 25 mg/dL (8-23); Carbon Dioxide 22 mEq/L (23-29); Chloride 105 mEq/L (98-107); Glucose 319 mg/dL (70-105); Potassium 4.1 mEq/L (3.5-5.1); Sodium 137 mEq/L (136-145); eGFR For Non-African Americans > 60 (> 60)
[2017-12-05 06:34] LABS: Alanine Aminotransferase 15 Units/L (7-52); Albumin 4.1 g/dL (3.5-5.7); Albumin/Globulin Ratio 1.6 (1.1-2.2); Alkaline Phosphatase 71 Units/L (34-104); Aspartate Amino Transferase 12 Units/L (13-39); Bilirubin,Total 0.8 mg/dL (0.3-1.0); Calcium 9.3 mg/dL (8.6-10.3); Globulin 2.6 g/dL (2.4-3.5); Osmolality,Calculated 301 (280-300); Total Protein 6.7 g/dL (6.4-8.9)
[2017-12-05] MEDS: Aspirin Enteric Coated 81 MG Tablet PO SCH (07:59)
[2017-12-05] MEDS: *HR* GlipiZIDE 5 MG TABLET PO SCH (07:59)
[2017-12-05] MEDS: Insulin LISPRO 300 UNITS/3 ML VIAL SQ SCH ×7 (08:00→16:54)
[2017-12-05] MEDS: 0.9 % Sodium Chloride 1,000 ML IVC SCH ×2 (08:00→08:31)
[2017-12-05] MEDS ORDERED: Furosemide 40 MG TABLET PO SCH (09:00)
[2017-12-05] MEDS ORDERED: predniSONE 20 MG TABLET PO SCH (09:00)
--- NOTE | 2017-12-05 09:13 | Neurology - Consult Note ---
Date of Encounter: 12/05/17 Time of Encounter: 09:10 Assessment and Plan (1) CVA (cerebral vascular accident) Current Visit: Yes Status: Acute Patient has HTN, DM and hyperlipidemia and CAD on aspirin who developed acute onset of right sided weakness and dizziness compatible with the finding of left posterior internal capsule lacunar infarct. This is likely small vessel lacuanr infarct, secondary to small vessel/cholesterol etiology. Would recommend addition of Plavix 75mg daily in addition to baby aspirin as secondary CVA preventative therapy. Would also suggest cardiology input regarding history of atrial fibrillation and the use of anticoagulation therapy. If anticoagulation is to be considered then will choose anticoagulation plus aspirin. Other than than, he already had echocardiography and carotid artery duplex study recently. Won't hurt to repeat these to make sure no changes have occurred. The size of the cerebral infarct is small and neurologist prognosis is fair. PT evaluation may benefit. WIll sign off and please call if any questions Qualifiers: CVA mechanism: thrombosis Precerebral and cerebral artery: unspecified precerebral artery Qualified Code(s): I63.00 - Cerebral infarction due to thrombosis of unspecified precerebral artery History of Present Illness Chief complaint: dizziness head and neck pain HPI: Mr. Narvaez is a 72 year old male with PMH significant for HTN, COPD, DM, CAD, chronic fatigue who developed acute onset of right sided weakness and dizziness and gait difficulty. Symptoms occurred yesterday after he woke up in the morning therefore exact time of symptom onset is unknown. Patient was able to walk but felt wobbly. He also felt right arm and leg are weak. No speech difficulty reported. Initial CT of head reported no acute intracranial abnormality but MRI of brain without contrast reported acute cerebral infarct at the left posterior internal capsule. Patient states that he passed out three years ago and he was treated at [facility]. He was started on Xarelto? and he was on the medicine for about 2 and half years but he could not afford the medicine therefore it was discontinued. He takes aspirin 81 mg 1-2 tablets intermittently but he takes them almost on daily basis. He saw Records Management Engineer few months ago but no mentioning in regard to the use of Xarelto. He has had atrial fibrillation in the past from medical records. Currently the patient is feeling stable and he still has right sided mild weakness Past Med Surg Social Fam HX - Past Medical History Medical history: COPD, diabetes, hyperlipidemia, hypertension Additional medical history: black lung Psychiatric history: no psych history - Past Surgical History Surgical History: cholecystectomy, coronary bypass (CABG) Additional surgical history: hernia repair, left arm surgery (metal implants), thumb surgery. - Social History Smoking Status: Former smoker Smokeless Tobacco Status: No Alcohol use: none Drug use: none - Family History Father Hx Family Cardiac Disorders: Yes Mother Hx Family Cardiac Disorders: Yes Medications and Allergies Aspirin [Lo-Dose Aspirin EC] 81 mg PO DAILY 10/02/17 [History] Atorvastatin [Lipitor] 20 mg PO HS 10/02/17 [History] Carvedilol 12.5 mg PO BID 10/02/17 [History] Furosemide [Lasix] 40 mg PO DAILY 10/02/17 [History] SitaGLIPtin [Januvia] 100 mg PO DAILY 10/02/17 [History] Spironolactone [Aldactone] 12.5 mg PO DAILY 10/02/17 [History] amLODIPine [Norvasc] 5 mg PO DAILY 10/02/17 [History] glipiZIDE [Glipizide] 10 mg PO BID 10/02/17 [History] 3 Allergy/AdvReac Type Severity Reaction Status Date / Time No Known Allergies Allergy Unverified 10/02/17 07:22 All Systems: The remainder of the systems were reviewed and are negative Physical Examination - Vital Signs Vital Signs: Initial Vital Signs Temp Pulse Resp BP Pulse Ox 97.6 F 41 18 189/64 99 12/04/17 12:10 12/04/17 12:10 12/04/17 12:10 12/04/17 12:10 12/04/17 12:10 - Constitutional General appearance: comfortable - Neurologic Sensorimotor examination: intact Motor examination - right side: 4/5: deltoids, biceps, triceps, wrist flexion, wrist extension, bale stacker, hip flexors, tibialis Anterior, quadriceps, toe extension (EHL), plantarflexion Motor examination - left side: 5/5: deltoids, biceps, triceps, wrist flexion, wrist extension, hip flexors, bale stacker, quadriceps, tibialis Anterior, toe extension (EHL), plantarflexion Detailed sensory examination: intact Posture: other (None) Reflex and gait examination: intact Reflexes: Biceps: 1+, Triceps: 1+, Brachioradialis: 1+, Patella: 1+, Achilles: 1 + Mental Status Examination: awake, alert, oriented to person, oriented to place, oriented to time, follows commands appropriately, answers questions appropriately, no agnosia, no aphasia, no aproxia Cranial nerve examination: PERRL, EOMI, visual hart intact, corneal reflexes brisk symmetrically, sensory to face intact, mastication intact, no facial asymmetry is present, no dysarthria, hearing is intact symmetrically, soft palate elevates bilaterally upon phonation, gag reflex intact, flexes SCM and trapezius muscles symmetrically with full power, tongue protrudes midline, no atrophy or facial fasiculations present Cerebellar examination: performs finger to nose and heel to rodrigez symmetrically without ataxia (Reduced dexterity to the right side noted) Results - Laboratory Findings CBC and BMP: 12/05/17 05:34 12/05/17 05:34 Abnormal lab findings: Abnormal lab results Neutrophils # 9.8 K/mcL (1.6-8.9) H 12/05/17 05:34 APTT 36.3 Seconds (26.0-36.0) H 12/04/17 12:53 Carbon Dioxide 22 mEq/L (23-29) L 12/05/17 05:34 BUN 25 mg/dL (8-23) H 12/05/17 05:34 Glucose 319 mg/dL (70-105) H 12/05/17 05:34 Hemoglobin A1c 8.8 % (-5.6) H 12/04/17 17:10 Calculated Osmolality 301 (280-300) H 12/05/17 05:34 AST 12 Units/L (13-39) L 12/05/17 05:34 B-Natriuretic Peptide 103 pg/mL (Less than 100) H 12/04/17 12:53 Ur Specimen Adequacy See below A 12/04/17 12:55 Ur Specific [place] 1.026 (1.010-1.025) H 12/04/17 12:55 Urine Protein 30 mg/dL (Neg-Trace) H 12/04/17 12:55 Urine Microscopic RBC 5-15 per hpf (0-3) H 12/04/17 12:55 Ur Squamous Epith Cells Many per lpf (None-Few) H 12/04/17 12:55 Consult Discharge Plan - Plan Referrals: Rosa Tapia MD [Primary Care Provider] -
--- NOTE | 2017-12-05 12:09 | Internal Med Progress Note ---
Hospitalist Progress Note - Encounter Date of Encounter: 12/05/17 Time of Encounter: 12:07 - Subjective Interval History: Seen and evaluated at bedside, reports doing well but still feels a little clumsy and weak in the right extremity, denies shortness of breath, chest pain, nausea or vomiting. - Exam Vitals: Temp Pulse Resp BP Pulse Ox 98.1 F 86 17 156/84 95 12/05/17 11:22 12/05/17 11:22 12/05/17 11:22 12/05/17 11:22 12/05/17 11:22 Exam: General: Patient is alert, oriented x4, no acute distress. Head: atraumatic, normocephalic, Eye: normal appearance, PERRL, no scleral icterus, no conjunctival injection Respiratory: Clear to auscultation bilaterally, no wheezing, rales or crackles. Cardiovascular: RRR, normal s1 and s2, No rubs, gallops, or murmors. Abdomen: Obese, Bowel sounds present normoactive x-4 quadrants. Abdomen is soft , nondistended. No guarding or rebound. Musculoskeletal: Spontaneously moving all extremities. no edema, no calf tenderness. strength is 4/5 in the right lower extr Skin: warm, dry, intact. Neuro: Alert and oriented x4. Sensation light touch intact. Cranial nerves 2- 12 is intact. Not aphasic, rapid hand movements intact, [id number] intact, Psych: Patient's affect is normal - Assessment and Plan (1) CVA (cerebral vascular accident) Current Visit: Yes Status: Acute Assessment and Plan: MRI of the Brain: MPRESSION: 1. Acute ischemic lacunar infarct in the posterior limb left internal capsule extending into the posterior left frontal periventricular white matter. 2. No intracranial hemorrhage or mass effect. 3. Mild chronic white matter microvascular ischemic changes with scattered cerebral and cerebellar remote lacunar infarcts. Plan Permissive HTN for 24 more hours Started on Hydralzine 5mg/IV for SBP >220 or DBP 110 Will home antihypertensive medications Continue aspirin Started on Plavix Will discuss with cardiology about starting patient on anticoagulation as patient has a Hx of A. fib previously on Xarelto due to High CHADSVACS score Started on carb controlled diet Atorvastatin 40mg/PO daily Discontinue IV fluids as patient is on a diet PO/OT ordered pending evaluation for placement/disposition. (2) Atrial fibrillation Current Visit: Yes Status: Acute Assessment and Plan: Patient was previously on xarelto. CHADSVASC score >3. Cardiology consulted as patient would benefit from anticoagulation if not contraindicated. (3) Diabetes Current Visit: Yes Status: Acute Assessment and Plan: Blood sugar subotimally controlled. possible secondary to steroid use. Plan Levemir increase to 15 units BID Lispro AC increased to 5units, continue Lispro sliding scale Carb controlled diet Discontinued Glipizide while inpatient (4) COPD (chronic obstructive pulmonary disease) Current Visit: Yes Status: Acute Assessment and Plan: chest is cleared to auscultation. Plan Discontinue Prednisone 20mg/PO daily On duo-Nebs Q4RT scheduled. (5) HLD (hyperlipidemia) Current Visit: Yes Status: Acute Assessment and Plan: Plan f/u lipid panel started on Atorvastatin 40mg/PO daily (6) Hypertension Current Visit: Yes Status: Acute Assessment and Plan: Plan: Hold home antihypertensive medications for 24 more hours on permissive HTN Hydralazine 5mg/IV Q6HR PRN for SBP >220 or DBP >110 - Summary of Assessment and Plan Summary of Assessment and Plan: Patient to remain in the hospital. Pending PT/OT and cardiology evaluation. - Time Spent with Patient Total time spent is greater than 50% in coordination of care (as documented) at patient's floor/unit and/or counseling patient: Greater than 35 minutes (family and the nurse.) Plan of Care Discussed with: patient Internal Medicine: Result - Labs CBC & Chem 7: 12/05/17 05:34 12/05/17 05:34 Labs: Short CBC 12/05/17 Range/Units 05:34 WBC 11.0 (4.3-11.1) K/mcL Hgb 15.6 (12.9-16.9) g/dL Hct 45.0 (37.5-50.1) % Plt Count 180 (140-400) K/mcL Neutrophils # 9.8 H (1.6-8.9) K/mcL BMP 12/05/17 05:34 Sodium 137 Potassium 4.1 Chloride 105 Carbon Dioxide 22 L BUN 25 H Creatinine 1.17 Glucose 319 H Calcium 9.3 Liver Function 12/05/17 Range/Units 05:34 Total Bilirubin 0.8 (0.3-1.0) mg/dL AST 12 L (13-39) Units/L ALT 15 (7-52) Units/L Alkaline Phosphatase 71 (34-104) Units/L Albumin 4.1 (3.5-5.7) g/dL - ABG Interpretation ABG results: PT/INR, D-dimer PT 11.5 Seconds (9.4-12.1) 12/04/17 12:53 - VTE Documentation of Mechanical Device: Graduated compression elastic hosiery Consult Discharge Plan - Plan Referrals: Rosa Tapia MD [Primary Care Provider] - (Your appointment has been requested. Our offices will call you with an appointment. If you do not hear from us, feel free to call and make an appointment ) (1) CVA (cerebral vascular accident) Qualifiers: CVA mechanism: thrombosis Precerebral and cerebral artery: unspecified precerebral artery Qualified Code(s): I63.00 - Cerebral infarction due to thrombosis of unspecified precerebral artery (2) Atrial fibrillation Qualifiers: Atrial fibrillation type: paroxysmal Qualified Code(s): I48.0 - Paroxysmal atrial fibrillation (3) Diabetes Qualifiers: Diabetes mellitus type: type 2 Diabetes mellitus assisted insulin use: unspecified long distance operator insulin use status Diabetes mellitus complication status : with unspecified complications Qualified Code(s): E11.8 - Type 2 diabetes mellitus with unspecified complications (4) COPD (chronic obstructive pulmonary disease) Qualifiers: COPD type: unspecified COPD Qualified Code(s): J44.9 - Chronic obstructive pulmonary disease, unspecified (5) HLD (hyperlipidemia) Qualifiers: Hyperlipidemia type: unspecified Qualified Code(s): E78.5 - Hyperlipidemia, unspecified (6) Hypertension Qualifiers: Hypertension type: unspecified Qualified Code(s): I10 - Essential (primary) hypertension
--- NOTE | 2017-12-05 14:18 | Cardiology Consult Note ---
<Christopher Jaffe R - Last Filed: 12/05/17 14:56> Date of Encounter: 12/05/17 Time of Encounter: 14:15 Assessment and Plan (1) CVA (cerebral vascular accident) Current Visit: Yes Status: Acute Found to have acute ischemic lacunar infarct in the posterior limb left internal capsule extending into the posterior left frontal periventricular white matter. Seen by neurology, has been started on ASA and Plavix. Cardiology consulted to see if full anticoagulation is warranted because there has been written documentation of a past hx of A-Fib. Per pt, A-Fib was diagnosed at [place] 3-4 years ago, was on Xarelto, then stopped 2-3 years ago by an ED physician at [facility]. Pt was recently referred to Dr. Tafoya as outpt for A-Fib/DCCV, but pt was in sinus rhyhtm with PVCs at office visit. On all EKGs, stress test and telemetry pt is SR with PVCs. There has been no confirmed A-Fib in our system. Given no confirmed A-Fib on ECGs or testing, we will not start AC at this time. Recommend 2 week event monitor to monitor for any A-Fib. If A-Fib occurs on event monitor, will then plan to start AC given his [id number] of 6 (Age, HTN, DM, CAD, CVA). Continue ASA and Plavix for now. TTE 09/2017 EF 50%. Cardiology signing off. Reconsult PRN. Will coordinate outpt follow-up with Dr. Tafoya in 3-4 weeks. Qualifiers: CVA mechanism: thrombosis Precerebral and cerebral artery: unspecified precerebral artery Qualified Code(s): I63.00 - Cerebral infarction due to thrombosis of unspecified precerebral artery (2) Atrial fibrillation Current Visit: No Status: Ruled-out As above, A-Fib not been confirmed. 2 week event monitor at d/c to see if he has any A-Fib. SR with frequent PVCs on telemetry. Continue BB. If he has confirmed A-Fib on event monitor, will plan to start AC at that time since [id number] would be a 6 as above. Qualifiers: Atrial fibrillation type: paroxysmal Qualified Code(s): I48.0 - Paroxysmal atrial fibrillation (3) CAD (coronary artery disease) Current Visit: Yes Status: Acute [facility] 10/02/17 severe three vessel coronary artery disease. Diffuse LAD negative remodeling and disease may account for stress findings. Left subclavian without significant disease. The left ventricle is normal and has normal contractility EF 50% S/P CABG 4 of 4 patent bypass grafts. Continue ASA, Statin, BB. Qualifiers: Coronary Disease-Associated Artery/Lesion type: [place] artery [place] vs. transplanted heart: [place] heart Associated angina: without angina Qualified Code(s): I25.10 - Atherosclerotic heart disease of [place] coronary artery without angina pectoris Discussion w patient/family: The assessment and plan as outlined above was discussed with the patient and/or family members who expressed understanding and agreement. All questions were answered. Thank you for involving us in the care of your patient. Please call with any questions. I will discuss all the above with Dr. Hernandez and make changes as necessary. History of Present Illness Consult date: 12/05/17 Consult reason: anticoagulation recs Chief complaint: weakness History of present illness: Mr. Narvaez is a 72 year old male with PMH of CAD s/p CABG in 1997, COPD, DMII presented with dizziness, weakness and his lower extremities particularly right sided, shortness of breath and generalized feeling tired and poorly. His states that he had increased mild confusion. He denies chest pain or any worsening dyspnea from baseline. Feels that he is spinning in the room nothing appears to make his signs and symptoms worse or better. Found to have acute ischemic lacunar infarct in the posterior limb left internal capsule extending into the posterior left frontal periventricular white matter. Seen by neurology , has been started on ASA and Plavix. Cardiology was consulted to see if full anticoagulation is warranted because there has been written documentation of a past hx of A-Fib. Per pt, A-Fib was diagnosed at [place] 3-4 years ago, was on Xarelto, then stopped 2-3 years ago by an ED physician at [facility]. Pt was recently referred to Dr. Tafoya as outpt for A-Fib/DCCV, but pt was in sinus rhyhtm with PVCs at office visit. On all EKGs, stress test and telemetry pt is SR with PVCs. There has been no confirmed A-Fib in our system. Prior CV testing: [facility] 10/02/17: There is severe three vessel coronary artery disease. Diffuse LAD negative remodeling and disease may account for stress findings. Left subclavian without significant disease. The left ventricle is normal and has normal contractility EF 50% S/P CABG 4 of 4 patent bypass grafts. TTE 09/23/17: LVEF 50%. Low normal LV systolic function. Atypical septal motion consistent with post-operative status. Mild concentric left ventricular hypertrophy. Mild left ventricular diastolic dysfunction. Normal right ventricular structure and function. Mild mitral regurgitation. No pulmonary hypertension. Past Med Surg Social Fam HX - Past Medical History Medical history: COPD, diabetes, hyperlipidemia, hypertension Additional medical history: black lung Psychiatric history: no psych history - Past Surgical History Surgical History: cholecystectomy, coronary bypass (CABG) Additional surgical history: hernia repair, left arm surgery (metal implants), thumb surgery. - Social History Smoking Status: Former smoker Smokeless Tobacco Status: No Alcohol use: none Drug use: none - Family History Father Hx Family Cardiac Disorders: Yes Mother Hx Family Cardiac Disorders: Yes Medications and Allergies Aspirin [Lo-Dose Aspirin EC] 81 mg PO DAILY 10/02/17 [History] Atorvastatin [Lipitor] 20 mg PO HS 10/02/17 [History] Carvedilol 12.5 mg PO BID 10/02/17 [History] Furosemide [Lasix] 40 mg PO DAILY 10/02/17 [History] SitaGLIPtin [Januvia] 100 mg PO DAILY 10/02/17 [History] Spironolactone [Aldactone] 12.5 mg PO DAILY 10/02/17 [History] amLODIPine [Norvasc] 5 mg PO DAILY 10/02/17 [History] glipiZIDE [Glipizide] 10 mg PO BID 10/02/17 [History] 3 Allergy/AdvReac Type Severity Reaction Status Date / Time No Known Allergies Allergy Unverified 10/02/17 07:22 All Systems Review: The remainder of the systems were reviewed and are negative - Constitutional Constitutional: weakness - Cardiovascular Cardiovascular: dyspnea on exertion, lightheadedness - Neurological Neurological: dizziness Physical Examination Vital Signs, Last 4 Hours Temp Pulse Resp BP Pulse Ox 12/05/17 11:22 98.1 F 86 17 156/84 95 Vital Signs Temp Pulse Resp BP Pulse Ox 12/05/17 11:22 98.1 F 86 17 156/84 95 12/05/17 07:09 97.8 F 68 17 154/77 93 12/05/17 04:50 97.9 F 89 14 145/70 96 12/05/17 01:06 97.8 F 87 16 148/91 93 12/04/17 21:28 97.9 F 83 14 143/74 95 12/04/17 15:50 97.5 F L 75 15 178/79 96 12/04/17 15:19 20 155/93 12/04/17 14:51 18 93 12/04/17 14:49 71 20 158/95 100 Intake and Output 12/04/17 12/05/17 12/05/17 23:59 07:59 15:59 Intake Total 1420 / 1420 Output Total 250 / 250 Balance 1170 / 1170 Intake: IV Fluids 820 / 820 0.9 % Sodium Chloride 1,000 ML 820 / 820 @ 100 mls/hr IVC .Q10H [facility] Rx#: [id number] Oral 600 / 600 Output: Urine 250 / 250 Other: Meal Lunch Percent of Meal Consumed 100% # Voids 1 Weight 82.5 kg Blood Glucose* 310 288 Patient Weight 12/05/17 23:59 Weight 82.5 kg General: Conversant, No Apparent Distress HEENT: Atraumatic, Normocephaly, Mucus Membranes Moist Neck: No JVD, Normal carotid pulses Cardiac: Reg Rate and Rhythm, Normal S1 and S2, No Murmur Lungs: Normal Breath Sounds, No Wheeze, Rales, Rhonchi Neuro: Alert and responsive, No focal deficits noted Abdomen: Soft, Non-Tender Skin: No rashes noted on visualized skin Musculoskeletal: No Chest Wall Tenderness Extremities: No Clubbing, No Cyanosis, No Edema, Normal Pulses Results 12/05/17 05:34 12/05/17 05:34 Lab Results 12/05/17 12/05/17 05:34 05:34 WBC 11.0 Hgb 15.6 Hct 45.0 Plt Count 180 Sodium 137 Potassium 4.1 Chloride 105 Carbon Dioxide 22 L BUN 25 H Creatinine 1.17 Glucose 319 H Calcium 9.3 Total Bilirubin 0.8 AST 12 L ALT 15 Alkaline Phosphatase 71 Short CBC 12/05/17 Range/Units 05:34 WBC 11.0 (4.3-11.1) K/mcL Hgb 15.6 (12.9-16.9) g/dL Hct 45.0 (37.5-50.1) % Plt Count 180 (140-400) K/mcL Neutrophils # 9.8 H (1.6-8.9) K/mcL BMP 12/05/17 Range/Units 05:34 Sodium 137 (136-145) mEq/L Potassium 4.1 (3.5-5.1) mEq/L Chloride 105 (98-107) mEq/L Carbon Dioxide 22 L (23-29) mEq/L BUN 25 H (8-23) mg/dL Creatinine 1.17 (0.70-1.30) mg/dL Glucose 319 H (70-105) mg/dL Calcium 9.3 (8.6-10.3) mg/dL Liver Function 12/05/17 Range/Units 05:34 Total Bilirubin 0.8 (0.3-1.0) mg/dL AST 12 L (13-39) Units/L ALT 15 (7-52) Units/L Alkaline Phosphatase 71 (34-104) Units/L Albumin 4.1 (3.5-5.7) g/dL Impressions Brain MRI 12/04/17 16:16 IMPRESSION: 1. Acute ischemic lacunar infarct in the posterior limb left internal capsule extending into the posterior left frontal periventricular white matter. 2. No intracranial hemorrhage or mass effect. 3. Mild chronic white matter microvascular ischemic changes with scattered cerebral and cerebellar remote lacunar infarcts. D/ / Gopi Silva / Gopi Silva Interpreting Provider: Gopi Silva Active Medications Albuterol/Ipratropium (Duoneb) 3 ml IH [id number] [facility] Stop: 06/06/18 16:01 Amlodipine Besylate (Norvasc) 5 mg PO DAILY [facility] PRN Reason: Protocol Stop: 06/05/18 16:31 Last Admin: 12/04/17 22:53 Dose: Not Given Aspirin (Aspirin Ec) 81 mg PO DAILY [facility] Stop: 06/05/18 19:31 Last Admin: 12/05/17 07:59 Dose: 81 mg Atorvastatin Calcium (Lipitor) 40 mg PO HS [facility] Stop: 06/06/18 21:01 Carvedilol (Coreg) 12.5 mg PO BIDWM [facility] PRN Reason: Protocol Stop: 06/05/18 17:01 Last Admin: 12/04/17 22:54 Dose: Not Given Dextrose/Water (Dextrose 50% (Syg)) 25 ml IVP AD PRN PRN Reason: Hypoglycemia Stop: 06/05/18 16:59 Gadobutrol (Gadolinium Contrast Agent (Wt Based)) 1 each IV ONCE PRN; Protocol PRN Reason: SEE COMMENTS Stop: 12/06/17 16:17 Glucagon (Glucagen) 1 mg IM ONCE PRN PRN Reason: Hypoglycemia Stop: 06/05/18 16:59 Glucose (Gluctose) 15 gm PO ONCE PRN PRN Reason: Hypoglycemia Stop: 06/05/18 16:59 Glucose (Gluctose) 30 gm PO ONCE PRN PRN Reason: Hypoglycemia Stop: 06/05/18 16:59 Hydralazine HCl (Hydralazine) 5 mg IVP Q6HR PRN PRN Reason: Blood Pressure - High Stop: 06/06/18 12:15 Dextrose (Dextrose 5%) 1,000 mls @ 100 mls/hr IVC .Q10H PRN PRN Reason: HYPOGLYCEMIA Stop: 06/05/18 16:59 Insulin Detemir (Levemir) 15 unit SQ BID [facility] Stop: 06/06/18 21:01 Insulin Human Lispro (Humalog) 0 units SQ TIDAC [facility] PRN Reason: Protocol Stop: 06/06/18 07:31 Last Admin: 12/05/17 11:24 Dose: 8 units Insulin Human Lispro (Humalog) 5 units SQ TIDWM [facility] Stop: 06/06/18 12:16 Last Admin: 12/05/17 14:39 Dose: Not Given Losartan Potassium (Cozaar) 25 mg PO DAILY [facility] PRN Reason: Protocol Stop: 06/05/18 16:31 Last Admin: 12/04/17 22:53 Dose: Not Given - Imaging and Cardiology Echo: report reviewed Cardiac cath: report reviewed - EKG Interpretation EKG results cardiology: personally reviewed (Imer), other (12 hr tele AVG HR 88, frequent PVCs) Consult Discharge Plan - Plan Referrals: Rosa Tapia MD [Primary Care Provider] - 12/10/17 1:30 pm () <Luba Hernandez - Last Filed: 12/05/17 16:25> Date of Encounter: 12/05/17 - Attending Attestation Patient was seen and evaluated independently by me. Findings, assessment and plan were discussed at length with patient, questions answered. Agree with nurse practitioner's documentation. Addition as follows, Consulted for ho PAF. 72 yo CM CABG 1997 with 4/4 patent grafts, severe [place] 3-v CAD 2018, unclear history of PAF (off A/C several yrs ago) w/o recent long-term monitoring for AFib, preserved LVEF, DM, COPD. P/w mild R-hemiparesis. MRI L-internal capsue acute stroke at the background microvascular changes. No cp, dyspnea, palpitations. SR with frequent PVCs on ECG and Tele. VSS, NAD, RUE and RLE motor 4/4, CTA, IR PVCs, NT ND, no LE edema A: acute ischemic CVA etiology microvasculopathy/thrombtic, PAF history unclear, indication for A/C not clear w/o documented evidence at the setting of acute ischemic CVA of likley microvasculopathy etiology stable CAD P: ASA/plavix/statin event monitor, if + PAF, A/C as outpatient risk factors modification Luba Hernandez MD, PhD Assessment and Plan Discussion w patient/family: The assessment and plan as outlined above was discussed with the patient and/or family members who expressed understanding and agreement. All questions were answered. Thank you for involving us in the care of your patient. Please call with any questions. History of Present Illness History of present illness: Mr. Narvaez is a 72 year old male All Systems Review: The remainder of the systems were reviewed and are negative Results 12/05/17 05:34 12/05/17 05:34 Lab Results 12/05/17 12/05/17 05:34 05:34 WBC 11.0 Hgb 15.6 Hct 45.0 Plt Count 180 Sodium 137 Potassium 4.1 Chloride 105 Carbon Dioxide 22 L BUN 25 H Creatinine 1.17 Glucose 319 H Calcium 9.3 Total Bilirubin 0.8 AST 12 L ALT 15 Alkaline Phosphatase 71
[2017-12-05] MEDS: Ipratropium/Albuterol Neb 3 ML IH SCH ×2 (16:31→20:11)
[2017-12-05] MEDS: Insulin DETEMIR 100 UNIT/ML X5UNITS SQ SCH (20:22)
[2017-12-05] MEDS ORDERED: Acetaminophen 325 MG TABLET PO PRN (22:57)
[2017-12-06] MEDS: Ipratropium/Albuterol Neb 3 ML IH SCH ×6 (00:27→20:56)
[2017-12-06 06:25] LABS: Basophils % 0.2 %; Eosinophils # 0.1 K/mcL (0.0-0.6); Eosinophils % 0.6 %; Hematocrit 43.8 % (37.5-50.1); Immature Granulocytes % 0.5 % (0-4); Lymphocytes # 2.3 K/mcL (0.6-4.6); Lymphocytes % 18.1 %; Mean Corpuscular HGB Conc 34.2 g/dL (31.6-35.5); Mean Corpuscular Hemoglobin 30.5 pg (28.0-33.3); Mean Corpuscular Volume 89.2 fL (83.0-100.0); Mean Platelet Volume 11.2 fL (9.4-12.4); Monocytes # 0.7 K/mcL (0.0-1.3); Monocytes % 5.9 %; Neutrophils # 9.3 K/mcL (1.6-8.9); Platelet Count 158 K/mcL (140-400); Red Blood Count 4.91 M/mcL (4.19-5.50); Red Cell Distribution Width 13.5 % (11.5-14.5); Segmented Neutrophils % 74.7 %
[2017-12-06 06:43] LABS: Chol/HDL Ratio 4.8 (0-4.9)
[2017-12-06 06:44] LABS: BUN/Creatinine Ratio 25 (6-26); Blood Urea Nitrogen 25 mg/dL (8-23); Calcium 9.2 mg/dL (8.6-10.3); Carbon Dioxide 26 mEq/L (23-29); Chloride 107 mEq/L (98-107); Glucose 183 mg/dL (70-105); Magnesium 2.1 mg/dL (1.6-2.6); Osmolality,Calculated 297 (280-300); Phosphorous 3.2 mg/dL (2.7-4.5); Potassium 3.8 mEq/L (3.5-5.1); Sodium 139 mEq/L (136-145); eGFR For Non-African Americans > 60 (> 60)
[2017-12-06] MEDS: Insulin DETEMIR 100 UNIT/ML X5UNITS SQ SCH ×2 (08:02→21:41)
[2017-12-06] MEDS: Aspirin Enteric Coated 81 MG Tablet PO SCH (08:02)
[2017-12-06] MEDS: Insulin LISPRO 300 UNITS/3 ML VIAL SQ SCH ×6 (08:03→17:40)
--- NOTE | 2017-12-06 12:25 | Internal Med Progress Note ---
Hospitalist Progress Note - Encounter Date of Encounter: 12/06/17 Time of Encounter: 09:00 - Subjective Interval History: Patient still complaining of right-sided weakness, which is minimal. Patient walked with assistance along hallway. Denies dizziness/lightheaded. - Exam Vitals: Temp Pulse Resp BP Pulse Ox 97.8 F 89 16 120/72 95 12/06/17 11:30 12/06/17 11:30 12/06/17 11:30 12/06/17 11:30 12/06/17 11:30 Exam: General: Patient is alert, oriented x4, no acute distress. Head: atraumatic, normocephalic, Eye: normal appearance, PERRL, no scleral icterus, no conjunctival injection Respiratory: Clear to auscultation bilaterally, no wheezing, rales or crackles. Cardiovascular: RRR, normal s1 and s2, No rubs, gallops, or murmors. Abdomen: Obese, Bowel sounds present normoactive x-4 quadrants. Abdomen is soft , nondistended. No guarding or rebound. Musculoskeletal: Spontaneously moving all extremities. no edema, no calf tenderness. strength is 4/5 in the right lower extr Skin: warm, dry, intact. Neuro: Alert and oriented x4. Sensation light touch intact. Cranial nerves 2- 12 is intact. Not aphasic, rapid hand movements intact, [id number] intact, Psych: Patient's affect is normal - Assessment and Plan (1) CVA (cerebral vascular accident) Current Visit: Yes Status: Acute Assessment and Plan: MRI of the Brain: MPRESSION: 1. Acute ischemic lacunar infarct in the posterior limb left internal capsule extending into the posterior left frontal periventricular white matter. 2. No intracranial hemorrhage or mass effect. 3. Mild chronic white matter microvascular ischemic changes with scattered cerebral and cerebellar remote lacunar infarcts. Plan Permissive HTN for 24 more hours Started on Hydralzine 5mg/IV for SBP >220 or DBP 110 Will home antihypertensive medications Continue aspirin Started on Plavix Cardio consult appreciated, no confirmed A Fib, no AC at this point, consider 2 weeks of event monitor. Atorvastatin 40mg/PO daily Echo and duplex carotid b/l PO/OT ordered pending evaluation for placement/disposition. (2) Atrial fibrillation Current Visit: No Status: Ruled-out Assessment and Plan: As above. Cardio consulted, no confirmed A Fib, no AC at this point, 2 weeks of event monitor. F/U cardio as OP. (3) Diabetes Current Visit: Yes Status: Acute Assessment and Plan: Blood sugar is better controlled after insulin dose adjustment and d/c steroid.. Plan Cont current regime and cont closely monitor. (4) COPD (chronic obstructive pulmonary disease) Current Visit: Yes Status: Acute Assessment and Plan: chest is cleared to auscultation. Plan Discontinue Prednisone 20mg/PO daily On duo-Nebs Q4RT scheduled. (5) HLD (hyperlipidemia) Current Visit: Yes Status: Acute Assessment and Plan: Plan f/u lipid panel started on Atorvastatin 40mg/PO daily (6) Hypertension Current Visit: Yes Status: Acute Assessment and Plan: Plan: Hold home antihypertensive medications for 24 more hours on permissive HTN Hydralazine 5mg/IV Q6HR PRN for SBP >220 or DBP >110 (7) Superficial vein thrombosis Current Visit: Yes Status: Acute Assessment and Plan: Venous Doppler preliminary result shows left LSV SVT, pt denies symptoms, pt had CABG for which left saphenous vein has been used with a long scar along LSV area. Waiting for final venous test report. DVT Prophylaxis: Heparin SC - Time Spent with Patient Total time spent is greater than 50% in coordination of care (as documented) at patient's floor/unit and/or counseling patient: 25 - 35 minutes Internal Medicine: Result - Labs CBC & Chem 7: 12/06/17 05:39 12/06/17 05:39 Labs: Short CBC 12/06/17 Range/Units 05:39 WBC 12.4 H (4.3-11.1) K/mcL Hgb 15.0 (12.9-16.9) g/dL Hct 43.8 (37.5-50.1) % Plt Count 158 (140-400) K/mcL Neutrophils # 9.3 H (1.6-8.9) K/mcL BMP 12/06/17 05:39 Sodium 139 Potassium 3.8 Chloride 107 Carbon Dioxide 26 BUN 25 H Creatinine 1.01 Glucose 183 H Calcium 9.2 - ABG Interpretation ABG results: PT/INR, D-dimer PT 11.5 Seconds (9.4-12.1) 12/04/17 12:53 - VTE Documentation of Mechanical Device: Graduated compression elastic hosiery Consult Discharge Plan - Plan Referrals: Rosa Tapia MD [Primary Care Provider] - 12/10/17 1:30 pm () (1) CVA (cerebral vascular accident) Qualifiers: CVA mechanism: thrombosis Precerebral and cerebral artery: unspecified precerebral artery Qualified Code(s): I63.00 - Cerebral infarction due to thrombosis of unspecified precerebral artery (2) Atrial fibrillation Qualifiers: Atrial fibrillation type: paroxysmal Qualified Code(s): I48.0 - Paroxysmal atrial fibrillation (3) Diabetes Qualifiers: Diabetes mellitus type: type 2 Diabetes mellitus residential insulin use: unspecified remote computer terminal operator insulin use status Diabetes mellitus complication status : with unspecified complications Qualified Code(s): E11.8 - Type 2 diabetes mellitus with unspecified complications (4) COPD (chronic obstructive pulmonary disease) Qualifiers: COPD type: unspecified COPD Qualified Code(s): J44.9 - Chronic obstructive pulmonary disease, unspecified (5) HLD (hyperlipidemia) Qualifiers: Hyperlipidemia type: unspecified Qualified Code(s): E78.5 - Hyperlipidemia, unspecified (6) Hypertension Qualifiers: Hypertension type: unspecified Qualified Code(s): I10 - Essential (primary) hypertension
[2017-12-06] MEDS: *HR* Heparin 5,000 UNIT/ML VIAL SQ SCH (17:40)
[2017-12-07] MEDS: Ipratropium/Albuterol Neb 3 ML IH SCH ×7 (00:21→23:41)
[2017-12-07 04:18] LABS: Basophils # 0.1 K/mcL (0.0-0.2); Basophils % 0.6 %; Eosinophils # 0.3 K/mcL (0.0-0.6); Eosinophils % 2.8 %; Hematocrit 45.6 % (37.5-50.1); Hemoglobin 15.2 g/dL (12.9-16.9); Immature Granulocytes % 0.3 % (0-4); Lymphocytes # 2.6 K/mcL (0.6-4.6); Lymphocytes % 24.9 %; Mean Corpuscular HGB Conc 33.3 g/dL (31.6-35.5); Mean Corpuscular Hemoglobin 29.7 pg (28.0-33.3); Mean Corpuscular Volume 89.1 fL (83.0-100.0); Mean Platelet Volume 10.9 fL (9.4-12.4); Monocytes # 0.8 K/mcL (0.0-1.3); Monocytes % 7.9 %; Neutrophils # 6.6 K/mcL (1.6-8.9); Platelet Count 158 K/mcL (140-400); Red Blood Count 5.12 M/mcL (4.19-5.50); Red Cell Distribution Width 13.4 % (11.5-14.5); Segmented Neutrophils % 63.5 %
[2017-12-07 04:32] LABS: BUN/Creatinine Ratio 21 (6-26); Blood Urea Nitrogen 18 mg/dL (8-23); Calcium 9.2 mg/dL (8.6-10.3); Carbon Dioxide 25 mEq/L (23-29); Chloride 108 mEq/L (98-107); Glucose 111 mg/dL (70-105); Osmolality,Calculated 293 (280-300); Potassium 3.6 mEq/L (3.5-5.1); Sodium 140 mEq/L (136-145); eGFR For Non-African Americans > 60 (> 60)
[2017-12-07] MEDS: *HR* Heparin 5,000 UNIT/ML VIAL SQ SCH ×2 (06:00→17:03)
[2017-12-07] MEDS: Aspirin Enteric Coated 81 MG Tablet PO SCH (07:42)
[2017-12-07] MEDS: Insulin DETEMIR 100 UNIT/ML X5UNITS SQ SCH ×2 (07:42→20:21)
[2017-12-07] MEDS: Insulin LISPRO 300 UNITS/3 ML VIAL SQ SCH ×6 (07:43→17:03)
[2017-12-07] MEDS ORDERED: Perflutren Lipid Microsphere 1.3 ML in 0.9 % Sodium Chloride 8.7 ML IVP ONE (09:22)
--- NOTE | 2017-12-07 15:18 | Internal Med Progress Note ---
Hospitalist Progress Note - Encounter Date of Encounter: 12/07/17 Time of Encounter: 09:00 - Subjective Interval History: Patient has minimal right side weakness. Denies dizziness/lightheaded. - Exam Vitals: Temp Pulse Resp BP Pulse Ox 97.8 F 98 16 160/85 95 12/07/17 11:48 12/07/17 11:48 12/07/17 11:48 12/07/17 11:48 12/07/17 11:48 Exam: General: Patient is alert, oriented x4, no acute distress. Head: atraumatic, normocephalic, Eye: normal appearance, PERRL, no scleral icterus, no conjunctival injection Respiratory: Clear to auscultation bilaterally, no wheezing, rales or crackles. Cardiovascular: RRR, normal s1 and s2, No rubs, gallops, or murmors. Abdomen: Obese, Bowel sounds present normoactive x-4 quadrants. Abdomen is soft , nondistended. No guarding or rebound. Musculoskeletal: Spontaneously moving all extremities. no edema, no calf tenderness. strength is 4/5 in the right lower extr Skin: warm, dry, intact. Neuro: Alert and oriented x4. Sensation light touch intact. Cranial nerves 2- 12 is intact. Not aphasic, rapid hand movements intact, [id number] intact, Psych: Patient's affect is normal - Assessment and Plan (1) CVA (cerebral vascular accident) Current Visit: Yes Status: Acute Assessment and Plan: MRI of the Brain: MPRESSION: 1. Acute ischemic lacunar infarct in the posterior limb left internal capsule extending into the posterior left frontal periventricular white matter. 2. No intracranial hemorrhage or mass effect. 3. Mild chronic white matter microvascular ischemic changes with scattered cerebral and cerebellar remote lacunar infarcts. Plan Continue aspirin Started on Plavix Cardio consult appreciated, no confirmed A Fib, no AC at this point, consider 2 weeks of event monitor. Atorvastatin 40mg/PO daily Echo and duplex carotid b/l pending PO/OT ordered pending evaluation for placement/disposition. Resume home HTN meds. (2) Atrial fibrillation Current Visit: No Status: Ruled-out Assessment and Plan: As above. Cardio consulted, no confirmed A Fib, no AC at this point, 2 weeks of event monitor. F/U cardio as OP. (3) Diabetes Current Visit: Yes Status: Acute Assessment and Plan: Blood sugar is better controlled after insulin dose adjustment and d/c steroid.. Plan Cont current regime and cont closely monitor. (4) COPD (chronic obstructive pulmonary disease) Current Visit: Yes Status: Acute Assessment and Plan: chest is cleared to auscultation. Plan Discontinue Prednisone 20mg/PO daily On duo-Nebs Q4RT scheduled. (5) HLD (hyperlipidemia) Current Visit: Yes Status: Acute Assessment and Plan: Plan f/u lipid panel started on Atorvastatin 40mg/PO daily (6) Hypertension Current Visit: Yes Status: Acute Assessment and Plan: Resume home HTN meds, closely monitor BP (7) Superficial vein thrombosis Current Visit: Yes Status: Acute Assessment and Plan: Final report show chronic on lesser saphenous vein. Asymptomatic. No further treatment at this point. - Time Spent with Patient Total time spent is greater than 50% in coordination of care (as documented) at patient's floor/unit and/or counseling patient: Internal Medicine: Result - Labs CBC & Chem 7: 12/07/17 03:44 12/07/17 03:44 Labs: Short CBC 12/07/17 Range/Units 03:44 WBC 10.4 (4.3-11.1) K/mcL Hgb 15.2 (12.9-16.9) g/dL Hct 45.6 (37.5-50.1) % Plt Count 158 (140-400) K/mcL Neutrophils # 6.6 (1.6-8.9) K/mcL BMP 12/07/17 03:44 Sodium 140 Potassium 3.6 Chloride 108 H Carbon Dioxide 25 BUN 18 Creatinine 0.86 Glucose 111 H Calcium 9.2 - ABG Interpretation ABG results: PT/INR, D-dimer PT 11.5 Seconds (9.4-12.1) 12/04/17 12:53 - Impressions Impressions Echocardiogram 12/07/17 12:15 Impressions: LVEF 55%. Normal LV chamber size, wall thickness and systolic function. Indeterminate diastolic function. Normal RV size and function. No significant valvular dysfunction. Unable to estimate pulmonary artery pressure due to lack of TR jet. Left Ventricular Wall Motion: Rest Echo Findings All wall segments showed normal motion. Findings: Study Quality * Technically adequate exam. ECG Findings * Atrial fibrillation. Left Ventricle * LVEF 55%. * Normal LV chamber size, wall thickness and systolic function. * Indeterminate diastolic function. Right Ventricle * Normal right ventricular structure and function. Left Atrium * Normal left atrial size. Right Atrium * Normal right atrial size. Interatrial Septum * Interatrial septum not well evaluated. Aortic Valve * Mildly calcified aortic valve leaflets. * No aortic regurgitation. * No aortic stenosis. Mitral Valve * Mild mitral annular calcification * Trace mitral regurgitation. Tricuspid Valve * Normal tricuspid valve structure and function. * No tricuspid regurgitation. * Unable to estimate RVSP due to lack of TR jet. Pulmonic Valve * Pulmonic valve not well visualized. * No pulmonic regurgitation. Aorta * Normally sized aortic root. Pericardium * The pericardium appears normal. IVC * Normal IVC dimensions and inspiratory collapse. - VTE Documentation of Mechanical Device: Graduated compression elastic hosiery Consult Discharge Plan - Plan Referrals: Rosa Tapia MD [Primary Care Provider] - 12/10/17 1:30 pm () (1) CVA (cerebral vascular accident) Qualifiers: CVA mechanism: thrombosis Precerebral and cerebral artery: unspecified precerebral artery Qualified Code(s): I63.00 - Cerebral infarction due to thrombosis of unspecified precerebral artery (2) Atrial fibrillation Qualifiers: Atrial fibrillation type: paroxysmal Qualified Code(s): I48.0 - Paroxysmal atrial fibrillation (3) Diabetes Qualifiers: Diabetes mellitus type: type 2 Diabetes 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 insulin 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: unspecified ordnance mechanic insulin use status Diabetes mellitus complication status : with unspecified complications Qualified Code(s): E11.8 - Type 2 diabetes mellitus with unspecified complications (4) COPD (chronic obstructive pulmonary disease) Qualifiers: COPD type: unspecified COPD Qualified Code(s): J44.9 - Chronic obstructive pulmonary disease, unspecified (5) HLD (hyperlipidemia) Qualifiers: Hyperlipidemia type: unspecified Qualified Code(s): E78.5 - Hyperlipidemia, unspecified (6) Hypertension Qualifiers: Hypertension type: unspecified Qualified Code(s): I10 - Essential (primary) hypertension
--- NOTE | 2017-12-07 22:31 | Event Note ---
Date of Encounter: 12/07/17 Time of Encounter: 21:17 Alerted by pts. nurse Nelli RN that the pt. was frustrated about not being discharged today. He told the nurse that people keep telling him he is going home and then it doesn't happen. Feels that he is not being told the entire truth about his stay. Pt. told the nurse he is leaving at 07:00 if he doesn't have answers. Went to see the pt. who was resting in bed but clearly frustrated. I explained to the pt. about his acute infarct which was seen on MRI of the head/brain. He stated that he's been told that the stroke occurred on the right side, and then states someone told him it was on the left side. I reviewed the MRI results and told the pt. that the acute ischemic lacunar infarct occurred in the posterior limb left internal capsule extending into the posterior left frontal periventricular white matter. I explained there was no hemorrhage or mass effect. I also explained to the patient he had mild chronic white matter microvascular ischemic changes with scattered cerebral and cerebellar remote lacunar infarcts. I instructed the patient that the infarct occurred on the left side of his brain which explained why he was experiencing right-sided weakness due to a stroke affecting the opposite side of the body from where it occurred. Pt. also frustrated that he had had bilateral carotid Dopplers done and had no results. I searched pts. MAR and reports/notes for Doppler results which were not present. There is no mention of carotid Dopplers being done, nor results. I explained to the pt. that the test results were not available. I also explained the risk of carotid blockages on further infarcts. I stated that I would leave a note for carotid Doppler results to be discussed w/pt. in the a.m. in the event that blockages were present and further intervention was necessary. Patient's frustration seemed better following our discussion and I discussed situation w/pts. nurse to put nurse's note in for carotid Doppler results to be discussed w/pt. first thing in a.m. Pt. to be monitored overnight.
[2017-12-08] MEDS: Ipratropium/Albuterol Neb 3 ML IH SCH ×4 (04:48→15:27)
[2017-12-08] MEDS: *HR* Heparin 5,000 UNIT/ML VIAL SQ SCH (06:05)
[2017-12-08] MEDS: Insulin LISPRO 300 UNITS/3 ML VIAL SQ SCH ×4 (08:17→11:46)
[2017-12-08] MEDS: Aspirin Enteric Coated 81 MG Tablet PO SCH (08:17)
[2017-12-08] MEDS: amLODIPine 5 MG TABLET PO SCH (08:17)
[2017-12-08] MEDS: Insulin DETEMIR 100 UNIT/ML X5UNITS SQ SCH (08:19)
[2017-12-08] MEDS ORDERED: Isovue-370 500 ML INFUS..BTL IV ONE (14:41)
[2017-12-08 15:52] VITALS: BP 153/76
--- NOTE | 2017-12-08 16:10 | Discharge Summary ---
- NOTES TO OUTPATIENT PROVIDER Notes to Outpatient Provider: 1. Pt needs to f/u with cardio for event monitoring result and to r/o A Fib. 2. Plavix 75mg po daily added per neuro Orders not resulted at time of discharge: Pending orders 12/05/17 15:00 ECG event monitor 2 weeks [ECG] Routine Date of Encounter: 12/08/17 Time of Encounter: 15:00 - Discharge Diagnosis (1) CVA (cerebral vascular accident) Priority: Primary Status: Acute Qualifiers: CVA mechanism: thrombosis Precerebral and cerebral artery: unspecified precerebral artery Qualified Code(s): I63.00 - Cerebral infarction due to thrombosis of unspecified precerebral artery (2) Atrial fibrillation Priority: Secondary Status: Suspected Qualifiers: Atrial fibrillation type: paroxysmal Qualified Code(s): I48.0 - Paroxysmal atrial fibrillation (3) Diabetes Priority: Secondary Status: Acute Qualifiers: Diabetes mellitus type: type 2 Diabetes 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 insulin 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: unspecified superintendent marine oil terminal insulin use status Diabetes mellitus complication status : with unspecified complications Qualified Code(s): E11.8 - Type 2 diabetes mellitus with unspecified complications (4) COPD (chronic obstructive pulmonary disease) Priority: Secondary Status: Acute Qualifiers: COPD type: unspecified COPD Qualified Code(s): J44.9 - Chronic obstructive pulmonary disease, unspecified (5) HLD (hyperlipidemia) Priority: Secondary Status: Acute Qualifiers: Hyperlipidemia type: unspecified Qualified Code(s): E78.5 - Hyperlipidemia , unspecified (6) Hypertension Priority: Secondary Status: Acute Qualifiers: Hypertension type: unspecified Qualified Code(s): I10 - Essential (primary ) hypertension (7) Superficial vein thrombosis Priority: Secondary Status: Acute Hospital course: Mr. Narvaez is a 72 year old male presents of emergency room for right-sided weakness and dizziness. Patient was placed on continuous cardiac monitoring, MRI shows acute CVA. Neurology consult saw patient. Recommend add plavix po. Echo unremarkable. CTA of neck shows 40% Rt ICA, unremarkable Lt ICA, small lung nodule. Pt has hx of xarelto use, no sure hx of A Fib. Cardio consult called, not started AC because there is no confirmed A Fib. Will start event monitoring for 2 wks and f/u as outpatient. I have seen and examined the patient today. Patient is awake alert, oriented 3. Vitals are stable. Right side weakness is minimal and improved. PTOT evaluation recommend outpatient PT. Patient will discharge home and continue outpatient PT. patient was advised no driving until further cleared by PCP or neurology. Discharge discussed with: patient - Time Spent with Patient Total time spent providing and/or coordinating discharge services: 25 min Less than 30 minutes - Discharge Medications Prescriptions: Clopidogrel [Plavix] 75 mg PO DAILY 30 Days #30 tablet Home Medications: Aspirin [Lo-Dose Aspirin EC] 81 mg PO DAILY 10/02/17 [History] Atorvastatin [Lipitor] 20 mg PO HS 10/02/17 [History] Carvedilol 12.5 mg PO BID 10/02/17 [History] Furosemide [Lasix] 40 mg PO DAILY 10/02/17 [History] SitaGLIPtin [Januvia] 100 mg PO DAILY 10/02/17 [History] Spironolactone [Aldactone] 12.5 mg PO DAILY 10/02/17 [History] amLODIPine [Norvasc] 5 mg PO DAILY 10/02/17 [History] glipiZIDE [Glipizide] 10 mg PO BID 10/02/17 [History] Clopidogrel [Plavix] 75 mg PO DAILY 30 Days #30 tablet 12/08/17 [Rx] Allergies/Adverse Reactions: 3 Allergy/AdvReac Type Severity Reaction Status Date / Time No Known Allergies Allergy Unverified 10/02/17 07:22 Date of admission: 12/04/17 17:03 Primary care physician: Rosa Tapia MD Consults: 12/05/17 12:05 Consult to Cardiology [CONS] Routine Comment: Consulting Provider: [facility] Reason for Consult: CVA. Hx of Freidafib was previouly on xarelto. Off anticoagulation. Neurology requested consult to discuss with Anticoagulation appropiate/OK from cardiology side. Call Completed: No 12/05/17 15:32 Consult to Occupational Therapy [CONS] Routine Comment: Evaluate, develop and implement POC Reason for Consult: CVA Does patient have active BEDREST order?: No Is patient medically & hemodynamically stable?: Yes Consult to Physical Therapy [CONS] Routine Comment: Evaluate, develop and implement POC Reason for Consult: CVA Does patient have active BEDREST order?: No Is patient medically & hemodynamically stable?: Yes Discharging clinician: Celine Marin Anticipated date of discharge: 12/08/17 - Constitutional Vitals: Temp Pulse Resp BP Pulse Ox 97.7 F 85 16 153/76 92 12/08/17 15:51 12/08/17 15:51 12/08/17 15:51 12/08/17 15:51 12/08/17 15:51 General appearance: Present: A&O X 3, pleasant, no acute distress Exam: in NAD - Head Head exam: Present: atraumatic, normocephalic - Eye Eye exam: Present: PERRL, conjuntiva pink, sclera anicteric Pupils: Present: PERRL - Neck Neck exam general surgery: Present: supple, trachea midline. Absent: lymphadenopathy - Respiratory Respiratory exam: Present: CTAB. Absent: accessory muscle use, rales, rhonchi, wheezes - Cardiovascular Cardiovascular exam: Present: RRR, +S1, +S2. Absent: diastolic murmur, gallop, rubs, systolic murmur - GI/Abdominal GI/Abdominal exam: Present: normal bowel sounds, soft, no peritoneal signs. Absent: distended, tenderness - Extremities Exam Extremities exam: Present: warm, radial pulses palpable and symmetrical. Absent : calf tenderness, cyanotic, pedal edema - Neurological Exam Neurological exam: Present: CN II-XII intact, oriented X3, no focal deficits. Absent: pronater drift, facial droop, speech deficit - Skin Skin exam: Present: dry, intact - Patient Status Disposition: Home, Self-Care Condition: Good Functional capacity at discharge: independent ambulation Overall status at discharge: patient is progressing back to baseline - Discharge Instructions Follow Up With: Rosa Tapia MD [Primary Care Provider] - 12/10/17 1:30 pm () Additional Instructions: F/U with cardiology as scheduled. - Diet and Activity Activity: increase activity as tolerated Diet: diabetic diet, low fat, low cholesterol, low salt diet - VTE Documentation of Mechanical Device: Graduated compression elastic hosiery
== END 2017-12-08 17:44 | disposition home or self-care (01) | DRG 65 ==
LOC: 3BNU 12:07 → EMEROOARM 12:07 → 3BNU 15:21 → SUATTDRO 17:03
PROVIDERS: ADMIT Internal Medicine; ATTEND Internal Medicine